=== PATIENT | female | born 1950 | race Caucasian/White ===

== ENCOUNTER → 2016-10-19 | Outpatient (CLI) | payer MEDICARE, OTHER ==
[2016-10-19 12:00] LABS: CH 32.1; CHCM 34.3; HCT 38.6 % (34.0-46.0); HDW 2.66; MCH 31.8 pg (25.0-35.0); MCHC 33.7 g/dL (31.0-37.0); MCV 94.3 fL (80.0-100.0); Mean Platelet Volume 7.2; RDW 12.7 % (11.5-15.5); WBC 6.5 k/uL (3.8-10.6)
[2016-10-19 12:16] LABS: Anion Gap 13 mmol/L; Blood Urea Nitrogen 8 mg/dL (7-17); Carbon Dioxide 21 mmol/L (22-30); Chloride 106 mmol/L (98-107); Non-African American GFR(MDRD) >60 (>60 ml/min/1.73 sqM); Potassium 4.4 mmol/L (3.5-5.1); Sodium 140 mmol/L (137-145)
== END | disposition home or self-care (01) ==
LOC: LABPAT 11:30
PROVIDERS: ATTEND Internal Medicine Interventional Cardiology
DX: Z01.812 Encounter for preprocedural laboratory examination (principal); R07.9 Chest pain, unspecified
CPT/HCPCS: 80051; 82565; 84520; 85027

== ENCOUNTER 2016-10-23 06:16 | Day surgery (SDC) | payer MEDICARE, OTHER ==
[2016-10-20 09:25] VITALS: BMI 27.1
[2016-10-23] MEDS ORDERED: ALPRAZolam 0.25 MG TAB PO PRN (06:24)
[2016-10-23] MEDS ORDERED: ATORVASTATIN 80 MG TAB PO STA (06:24)
[2016-10-23] MEDS ORDERED: ALPRAZolam 0.5 MG TAB PO PRN (06:24)
[2016-10-23] MEDS ORDERED: NITROGLYCERIN SL TABS 0.4 MG TAB SUBLINGUAL PRN (06:24)
[2016-10-23] MEDS ORDERED: SODIUM CHLORIDE 0.9% 1,000 ML in EMPTY BAG 1 BAG IV ONE (06:24)
[2016-10-23] MEDS ORDERED: ASPIRIN 325 MG TAB PO STA (06:24)
[2016-10-23 06:53] VITALS: RESP 16; TEMP 98.2
[2016-10-23] MEDS ORDERED: MIDAZOLAM 2 MG/2 ML VIAL IV ONE (07:45)
[2016-10-23] MEDS ORDERED: LIDOCAINE 2% INJ 20 MG/ML SQ ONE (07:46)
[2016-10-23] MEDS ORDERED: VERAPAMIL SYRINGE (5 MG/10 ML) INTRAARTER ONE (07:49)
[2016-10-23] MEDS ORDERED: HYDROmorphone 2 MG/ML 1 ML SYRINGE IV ONE (07:52)
[2016-10-23] MEDS ORDERED: IOHEXOL 350 MG/ML 100 ML BOTTLE INJ ONE (08:01)
[2016-10-23] MEDS ORDERED: RX INFO: IV CONTRAST WAS GIVEN 1 EACH MISC MISCELLANE PRN (08:09)
[2016-10-23] MEDS ORDERED: SODIUM CHLORIDE 0.9% 1,000 ML IV SCH (08:15)
[2016-10-23 13:04] VITALS: BP 138/64; PULSE 54
--- NOTE | 2016-10-23 16:30 | LTR ---
October 23, 2016 RE: Gracy Greco Dear Dr. Cortez: Ms. Gracy Greco underwent a heart catheterization which showed normal coronaries. Thank you for allowing me to participate in her care and please do not hesitate to call if you have any question or concerns. Sincerely, RITESH DAVIS MD
--- NOTE | 2016-10-23 16:43 | CC ---
DATE OF SERVICE: 10/23/2016 PERFORMING PHYSICIAN: Jim Barrera M.D., assistant statistician. PROCEDURE PERFORMED: Selective right and left coronary angiogram. INDICATION: This is a very pleasant 66-year-old female patient with hypertension, dyslipidemia and significant family history of coronary artery disease. She continues to have chest discomfort in spite of maximized medical treatment. She underwent a stress test which came back as normal, and she was reassured regarding that, but she continues to have chest discomfort. The heart catheterization is to rule out any severe underlying coronary artery disease. APPROACH: Right radial artery. COMPLICATIONS: None. LEVEL OF SEDATION: Moderate. PROCEDURE DESCRIPTION: After obtaining informed consent, the patient was brought to the cardiac research lab assistant. Right radial artery was cannulated using micropuncture technique. The micropuncture wire passed easily. Then I placed a 6 [place] sheath in the right radial artery. Subsequently I gave the patient 2 mg of Verapamil IA, 3000 units of heparin IV. Subsequently I did selective right and left coronary angiogram using JR4 and JL3.5 catheters. The procedure was completed without any complication. SELECTIVE CORONARY ANGIOGRAM: 1. The right coronary artery is a large-caliber vessel and it is a dominant vessel. It is angiographically normal. It bifurcates into PDA and PLV branches. Both are angiographically normal. 2. The left main is angiographically normal and bifurcates into the left circumflex and left anterior descending artery. 3. The left circumflex is a large-caliber vessel and it is a non-dominant vessel. The proximal left circumflex is angiographically normal and gives rise to the first and second obtuse marginal branches which seem to be tortuous but angiographically normally. The mid left circumflex is normal and gives rise to the third OM branch, which appeared to be angiographically normal besides being tortuous. The left circumflex continues after that as a small-caliber vessel in the AV groove. 4. Left anterior descending artery. The proximal left anterior descending artery appeared to be angiographically normal. The mid LAD appeared to be normal and gives rise to the first diagonal, which seems to be angiographically normal. The LAD distally is angiographically normal and also becomes tortuous. CONCLUSION: 1. Normal coronary angiogram. 2. Tortuous left coronary system. 3. Dominant right coronary system. POST-PROCEDURE MANAGEMENT: Maximize medical treatment and follow up with the patient.
== END 2016-10-23 13:39 | disposition home or self-care (01) ==
LOC: CATHCVL 06:16
PROVIDERS: ATTEND Internal Medicine Interventional Cardiology
DX: I20.0 Unstable angina (principal); I10 Essential (primary) hypertension; E78.5 Hyperlipidemia, unspecified; E78.00 Pure hypercholesterolemia, unspecified; Z82.49 Family history of ischemic heart disease and other diseases of the circulatory system; Z79.899 Other long term (current) drug therapy; Z88.1 Allergy status to other antibiotic agents; Z88.5 Allergy status to narcotic agent; Z87.891 Personal history of nicotine dependence
CPT/HCPCS: 93454; 99156; C1894; J2001; J2250; J1170; Q9967; J1644

== ENCOUNTER → 2017-04-06 | Outpatient (CLI) | payer MEDICARE, OTHER ==
[2017-04-06 09:54] LABS: Basophils # (A) 0.1 k/uL (0-0.2); Basophils % (A) 1 %; CH 32.1; CHCM 34.6; Eosinophils # (A) 0.1 k/uL (0-0.7); Eosinophils % (A) 3 %; HCT 38.6 % (34.0-46.0); HDW 2.45; HGB 13.4 gm/dL (11.4-16.0); Luc # (Auto) 0.18; Luc % (Auto) 4; Lymphocytes # (A) 1.7 k/uL (1.0-4.8); Lymphocytes % (A) 36 %; MCH 32.3 pg (25.0-35.0); MCHC 34.8 g/dL (31.0-37.0); Mean Platelet Volume 6.6; Monocytes # (A) 0.3 k/uL (0-1.0); Monocytes % (A) 7 %; Neutrophils # (A) 2.3 k/uL (1.3-7.7); Neutrophils % (A) 49 %; RBC 4.15 m/uL (3.80-5.40); RDW 13.3 % (11.5-15.5); WBC 4.7 k/uL (3.8-10.6); WBC (Perox) 4.88
[2017-04-06 10:24] LABS: ALT 71 U/L (9-52); AST 36 U/L (14-36); Alkaline Phosphatase 103 U/L (38-126); Anion Gap 11 mmol/L; Blood Urea Nitrogen 8 mg/dL (7-17); Calcium 9.8 mg/dL (8.4-10.2); Carbon Dioxide 25 mmol/L (22-30); Chloride 104 mmol/L (98-107); Cholesterol 194 mg/dL (<200); Glucose 133 mg/dL (74-99); HDL Cholesterol 58 mg/dL (40-60); Iron 102 ug/dL (37-170); Non-African American GFR(MDRD) >60 (>60 ml/min/1.73 sqM); Sodium 140 mmol/L (137-145); Total Bilirubin 0.6 mg/dL (0.2-1.3); Total Protein 6.6 g/dL (6.3-8.2); Triglycerides 181 mg/dL (<150); Uric Acid 5.4 mg/dL (3.7-7.4)
[2017-04-06 10:30] LABS: Potassium 4.7 mmol/L (3.5-5.1)
[2017-04-06 10:33] LABS: % Iron Saturation 31.9 % (20-50); Total Iron Binding Capacity 320 ug/dL (265-497)
[2017-04-06 11:13] LABS: Vitamin B12 380 pg/mL
[2017-04-06 13:58] LABS: Hemoglobin A1C 6.2 % (4.2-6.1)
--- NOTE | 2017-04-09 08:26 | MM ---
Reason for exam: screening (asymptomatic). Last mammogram was performed 1 year ago. History: Patient is postmenopausal. Cyst aspiration of the left breast. Cyst aspiration of the right breast. Took estrogen for 5 years 7 months. Took progesterone for 5 years 7 months. Physical Findings: A clinical breast exam by your physician is recommended on an annual basis and results should be correlated with mammographic findings. MG 3D Screening Mammo W/Cad Bilateral CC and MLO view(s) were taken. Prior study comparison: April 19, 2016, left breast MG 3d work up w/cad LT. April 05, 2016, bilateral MG screening mammo w CAD. The breast tissue is heterogeneously dense. This may lower the sensitivity of mammography. Partially obscured nodular density 7.2cm from nipple upper outer quadrant right breast. This finding is changed when compared with previous exams. ASSESSMENT: Incomplete: need additional imaging evaluation, BI-RAD 0 RECOMMENDATION: Special view mammogram of the right breast. If lesion persists on supplemental views, image directed ultrasound is recommended. [facility] will attempt to contact patient to return for supplemental views and ultrasound if indicated.
== END | disposition home or self-care (01) ==
LOC: RADMAMWWP 08:29
PROVIDERS: ATTEND Family Medicine
DX: Z12.31 Encounter for screening mammogram for malignant neoplasm of breast (principal); E56.9 Vitamin deficiency, unspecified; N95.1 Menopausal and female climacteric states; J44.9 Chronic obstructive pulmonary disease, unspecified; I50.32 Chronic diastolic (congestive) heart failure; I20.1 Angina pectoris with documented spasm; I10 Essential (primary) hypertension
CPT/HCPCS: 84439; 83880; 80061; 80053; 82607; 83036; 83540; 83550; 84443; 84550; 85025; 82306; 77063; G0202

== ENCOUNTER → 2017-04-19 | Outpatient (CLI) | payer MEDICARE, OTHER ==
--- NOTE | 2017-04-19 11:48 | MM ---
Reason for exam: additional evaluation requested from abnormal screening. Last mammogram was performed less than 1 month ago. History: Patient is postmenopausal. Cyst aspiration of the left breast. Cyst aspiration of the right breast. Took estrogen for 5 years 7 months. Took progesterone for 5 years 7 months. Physical Findings: Nurse Summary: 0.5cm nodule in the right breast at 2-3 o'clock (nurse kp). MG 3D Work Up W/Cad RT CC, MLO, ML, spot compression MLO, and spot compression CC view(s) were taken of the right breast. Prior study comparison: April 06, 2017, bilateral MG 3d screening mammo w/cad. April 19, 2016, left breast MG 3d work up w/cad LT. April 05, 2016, bilateral MG screening mammo w CAD. There are scattered fibroglandular densities. Finding: There is a 6 mm spiculated mass in the upper outer quadrant, middle position of the right breast. These results were verbally communicated with the patient and result sheet given to the patient on 04/19/17. ASSESSMENT: Incomplete: need additional imaging evaluation, BI-RAD 0 RECOMMENDATION: Ultrasound of the right breast.
--- NOTE | 2017-04-19 11:51 | USB ---
Reason for exam: additional evaluation requested from abnormal screening. History: Patient is postmenopausal. Cyst aspiration of the left breast. Cyst aspiration of the right breast. Took estrogen for 5 years 7 months. Took progesterone for 5 years 7 months. US Breast Workup Limited RT Right breast ultrasound demonstrates a 0.4 x 0.7 x 0.5cm irregular, solid, hypoechoic lesion at 11 o'clock, 4.2cm from nipple, correlates with mammographic findings. These results were verbally communicated with the patient and result sheet given to the patient on 04/19/17. ASSESSMENT: Suspicious, BI-RAD 4 RECOMMENDATION: Ultrasound core biopsy of the right breast. Called with mammographic findings and has scheduled an appointment for the patient for 05/24/17 at 10:[address] Martin. PRELIMINARY REPORT CALLED AND FAXED TO DR. MARTIN ON 04/19/17 AT 11:50 /TMP.
== END | disposition home or self-care (01) ==
LOC: RADMAMWWP 09:28
PROVIDERS: ATTEND Family Medicine
DX: R92.8 Other abnormal and inconclusive findings on diagnostic imaging of breast (principal); R92.2 Inconclusive mammogram
CPT/HCPCS: 76642; G0206; G0279

== ENCOUNTER → 2017-05-10 | Day surgery (SDC) | payer MEDICARE, OTHER ==
[2017-05-10 11:33] VITALS: RESP 18; BMI 26.9
[2017-05-10 13:26] VITALS: BP 117/69; PULSE 61; TEMP 97.8
--- NOTE | 2017-05-10 14:05 | USB ---
EXAMINATION TYPE: US biopsy breast VAD RT, Postbiopsy diagnostic mammo RT wo CAD DATE OF EXAM: 05/10/2017 CLINICAL HISTORY: 67-year-old female R92.8 ABN MAMMO. TECHNIQUE: Ultrasound guided core biopsy of the right breast. COMPARISON: 04/19/2017 and 04/06/2017 FINDINGS: The procedure of ultrasound guided core biopsy was explained to the patient. Benefits, alt ernatives, and risks were discussed. An informed consent was then obtained. The 7 x 3 mm vertically oriented irregular shadowing mass is identified at the 11:00 position and tar geted for biopsy. The patient was placed in supine positioning for imaging and for the procedure. The overlying skin w as prepped and draped in usual sterile fashion. Lidocaine was used as anesthetic into the skin and s ubcutaneous tissue up to area of concern in the right breast. Under ultrasound guidance, a 13-gauge vacuum-assisted mammotome Elite biopsy gun device was used to obtain 4 core samples. Following this, a coil clip was left in lesion. The patient tolerated the procedure well without any immediate complication. The patient was kept in the radiology department for short stay after the procedure and then discharged home in stable condi tion. Postbiopsy mammogram shows the clip in appropriate position at the site of mammographic abnormality. IMPRESSION: Successful, uncomplicated ultrasound guided core biopsy of the very suspicious area in the 11:00 righ t breast; full pathology results to follow. Excisional biopsy may be indicated in the event of discor dant results.
== END ==
LOC: RADUSWWP 11:04
PROVIDERS: ATTEND Family Medicine
DX: C50.911 Malignant neoplasm of unspecified site of right female breast (principal); D05.91 Unspecified type of carcinoma in situ of right breast; R92.8 Other abnormal and inconclusive findings on diagnostic imaging of breast
CPT/HCPCS: 19083; G0206; A4648; J2001; 88305; 88341; 88342

== ENCOUNTER → 2017-05-24 | Outpatient (CLI) | payer MEDICARE, OTHER ==
--- NOTE | 2017-05-24 12:35 | XR ---
EXAMINATION TYPE: XR chest 2V DATE OF EXAM: 05/24/2017 COMPARISON: 06/16/2016 TECHNIQUE: PA and lateral views submitted. HISTORY: Preop breast cancer FINDINGS: No pneumothorax or consolidation. Tiny bilateral pleural effusion suspected. Hyperinflation suggests COPD and there is degenerative change of the spine. Biapical pleural thickening. IMPRESSION: 1. Tiny bilateral pleural effusion or pleural thickening.
== END ==
LOC: RADXRMAIN 12:06
PROVIDERS: ATTEND Family Medicine
DX: C50.919 Malignant neoplasm of unspecified site of unspecified female breast (principal)
CPT/HCPCS: 71020

== ENCOUNTER 2017-05-31 09:13 | Day surgery (SDC) | payer MEDICARE, OTHER ==
[2017-05-22 16:21] VITALS: BMI 27.8
[~2017-05-31 09:13] MED LIST: DEXAMETHASONE SOD PHOSPHATE 10 MG/ML 1 ML VIAL IV ONE; HEPARIN SODIUM,PORCINE 5,000 UNIT/ML 1 ML VIAL SQ ONE; LACTATED RINGERS 1,000 ML IV SCH; LIDOCAINE 1% 20 ML VIAL (10MG/ML) FOR IV START INTRADERMA PRN; MIDAZOLAM 2 MG/2 ML VIAL IV PRN; ONDANSETRON 4 MG/2 ML VIAL IVP ONE; Pre Op ABX Message 1 EACH MISC MISCELLANE ONE; SCOPOLAMINE 1.5MG/72HR PATCH TRANSDERM ONE
[2017-05-31 09:32] VITALS: RESP 16
[2017-05-31 09:52] LABS: Glucose,Whole Blood 137 mg/dL (75-99)
[2017-05-31] MEDS ORDERED: ALPRAZolam 0.25 MG TAB PO ONE (10:02)
[2017-05-31] MEDS ORDERED: LIDOCAINE 1% INJ 10MG/ML (20 ML MDV) SQ ONE (11:16)
[2017-05-31] MEDS ORDERED: ePHEDrine SULFATE/0.9% NACL/PF 50 MG/5 ML SYRINGE IV ONE (12:23)
[2017-05-31] MEDS ORDERED: SUCCINYLCHOLINE CHLORIDE 100 MG/5 ML SYR IV ONE (12:23)
[2017-05-31] MEDS ORDERED: MIDAZOLAM 2 MG/2 ML VIAL ONE (12:23)
[2017-05-31] MEDS ORDERED: fentaNYL (PF) 50 MCG/ML 2 ML AMP ONE (12:23)
[2017-05-31] MEDS ORDERED: LIDOCAINE 1% INJ 10MG/ML (20 ML MDV) ONE (12:23)
[2017-05-31] MEDS ORDERED: PROPOFOL 10 MG/ML 20 ML VIAL IV ONE (12:23)
[2017-05-31] MEDS ORDERED: BUPIVACAINE (PF) 0.25% 30 ML VIAL SQ ONE (12:23)
[2017-05-31] MEDS ORDERED: SODIUM CHLORIDE 0.9% 100 ML with ceFAZolin 2,000 MG IV ONE ×2 (12:54)
--- NOTE | 2017-05-31 13:24 | NM ---
EXAMINATION TYPE: NM sentinel node injection DATE OF EXAM: 05/31/2017 COMPARISON: NONE HISTORY: Right breast cancer TECHNIQUE AND FINDINGS: The procedure of sentinel lymph node injection was explained to the patient. The benefits, alternatives, and risks were discussed. An informed consent was then obtained. Overlying skin is cleaned with sterile alcohol. Lidocaine buffered with bicarbonate was used as anes thetic into the skin and subcutaneous tissue surrounding the nipple. Following this, 585 uCi Tc 99m Filtered Sulfur Colloid was injected into 4 equivalent doses at 12, 3, 6, and 9:00 position surroundi ng the right nipple intradermally. The injection sites were massaged by nuclear reactor engineer for 10 minutes after injection. T he patient tolerated the procedure well without any immediate complication. The patient was kept in the radiology department for short stay after the procedure and then taken to surgery for surgical pr ocedure what is presumed intraoperative gamma probe will be used for sentinel lymph node detection. IMPRESSION: Right breast radiotracer injection for sentinel node localization as above.
[2017-05-31 14:28] VITALS: TEMP 96.2
[2017-05-31] MEDS ORDERED: NALOXONE 0.4 MG/ML 1 ML VIAL IV PRN (14:29)
[2017-05-31] MEDS ORDERED: HYDROcodone/APAP 5-325MG 1 EACH TAB PO PRN (14:29)
--- NOTE | 2017-05-31 14:33 | P.OP ---
Date of Procedure: 05/31/17 Preoperative Diagnosis: Postoperative Diagnosis: Procedure(s) Performed: PREOPERATIVE DIAGNOSIS: Right breast cancer POSTOPERATIVE DIAGNOSIS: Same PROCEDURE: Right Breast wire localization lumpectomy with sentinel lymph node biopsy and BioSorb placement SURGEON: Elisa EBL: Minimal ANESTHESIA: General COMPLICATIONS: None OPERATIVE PROCEDURE: Patient was placed on the operating room table in the supine position. 2 mL of methylene blue was injected into the subareolar space. The breast was then massaged for 5 minutes. The right axilla was addressed at that time. The hot spot in the right axilla was identified. A small curvilinear incision was made using the scalpel. Dissection down through the subcutaneous tissues took place using electrocautery. Using the neoprobe I identified a total of 3 sentinel lymph nodes. 2 of these were blue in color. These were all removed and sent to pathology for close examination. Frozen sections from these lymph nodes were negative for metastatic disease. No bleeding was seen. The subcutaneous tissues were closed using 3-0 Vicryl sutures. The skin was closed using 4-0 Monocryl sutures. The wire entrance site was then addressed. This was present at the 10:00 location. A curvilinear incision was made adjacent to the wire entrance site. I followed the wire down into the breast tissue. An adequate lumpectomy specimen then took place around the wire. Margins of 1.5-2 cm were attempted to be achieved. I then todd on the specimen with a black marker 6 different sides. The operative site was irrigated with saline. No bleeding was seen. A 2 x 3 cm BioSorb was placed in the biopsy cavity and sutured in place using 3-0 Vicryl sutures. The subcutaneous tissues were closed using 3-0 Vicryl sutures. The skin was closed using a running 4-0 Monocryl stitch. Steri-Strips and sterile dressings were applied. The lumpectomy specimen was then appropriately marked on all 6 sides with the appropriate color. DISPOSITION: Stable to recovery room Implants: Indications for Procedure: Operative Findings: Description of Procedure:
[2017-05-31] MEDS: HYDROmorphone 1 MG/ML 1 ML SYRINGE IVP PRN ×4 (14:40→15:41)
--- NOTE | 2017-05-31 14:47 | MM ---
EXAMINATION TYPE: MG pre op needle loc RT, MG surgical specimen RT DATE OF EXAM: 05/31/2017 12:27 PM COMPARISON: NONE HISTORY: Right breast carcinoma Informed consent was obtained and all the patient's questions were answered. The clip in question was localized mammographically. The standard sterile technique was utilized, as well as appropriate local anesthesia with 1% Lidocaine and bicarbonate. Localization needle followed by placement of a guidewire was performed under mammographic guidance. Verification images demonstrate appropriate deployment of the guidewire. The patient tolerated the procedure well and left the department in stable condition. Specimen radiograph demonstrates the clip in question to reside within the specimen. IMPRESSION: Successful needle localization and open biopsy right breast with pathology results pending . Pathology Results: Malignant A. SENTINEL LYMPH NODE #1, BIOPSY: TWO LYMPH NODES NEGATIVE FOR METASTASIS. CK7 AND SHELLIE IMMUNOPEROXIDASE STAINS ARE CONFIRMATORY (CONTROLS APPROPRIATE). B. SENTINEL LYMPH NODE #2, BIOPSY: LYMPH NODE NEGATIVE FOR METASTASIS. CK7 AND SHELLIE IMMUNOPEROXIDASE STAINS ARE CONFIRMATORY (CONTROLS APPROPRIATE). C. SENTINEL LYMPH NODE #3, BIOPSY: LYMPH NODE NEGATIVE FOR METASTASIS. CK7 AND SHELLIE IMMUNOPEROXIDASE STAINS ARE CONFIRMATORY (CONTROLS APPROPRIATE). D. 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 LOBULAR NEOPLASIA (AHL/LCIS) AND FOCAL FLAT EPITHELIAL ATYPIA (FEA/ADH). BACKGROUND PROLIFERATIVE FIBROCYSTIC CHANGES. SEE SURGICAL PATHOLOGY CANCER CASE SUMMARY AND COMMENT. E. RIGHT AXILLARY CONTENTS: BENIGN FIBROADIPOSE TISSUE. NO LYMPH NODE IDENTIFIED. Recommendation Surgical consult of the right breast. JANEL
[2017-05-31] MEDS ORDERED: LACTATED RINGERS 1,000 ML IV ONE ×2 (14:57)
[2017-05-31] MEDS ORDERED: HYDROcodone/APAP 5-325MG 1 EACH TAB PO ONE (16:20)
[2017-05-31 16:46] VITALS: BP 141/65; PULSE 80
== END 2017-05-31 18:03 | disposition home or self-care (01) ==
LOC: OR 09:13
PROVIDERS: ATTEND Surgery
DX: C50.411 Malignant neoplasm of upper-outer quadrant of right female breast (principal); I10 Essential (primary) hypertension; E78.5 Hyperlipidemia, unspecified; E78.00 Pure hypercholesterolemia, unspecified; K21.9 Gastro-esophageal reflux disease without esophagitis; E11.9 Type 2 diabetes mellitus without complications; I50.9 Heart failure, unspecified; Z80.8 Family history of malignant neoplasm of other organs or systems; Z80.0 Family history of malignant neoplasm of digestive organs; Z79.899 Other long term (current) drug therapy; Z88.1 Allergy status to other antibiotic agents; Z88.5 Allergy status to narcotic agent
CPT/HCPCS: 19301; 38500; 88305; 88342; 88331; 88307; 88341; 88361; 76098; 19281; 38792; A9541; J2250; J1644; J1100; J2405; J2001; J3010; J1170; J0690; J0330; J2704

== ENCOUNTER → 2017-12-06 | Outpatient (CLI) | payer MEDICARE, OTHER ==
--- NOTE | 2017-12-06 13:53 | BD ---
EXAMINATION TYPE: MG DEXA axial skeleton. DATE OF EXAM: 12/06/2017 CLINICAL HISTORY: Height: 60.5 Weight: 148 FRAX RISK QUESTIONS: Alcohol (3 or more units per day): no Family History (Parent hip fracture): no Glucocorticoids (More than 3mos): no (Ex: prednisone, prednisolone, methylprednisolone, dexamethasone, and hydrocortisone). History of Fracture in Adulthood: yes; ankle- toes Secondary Osteoporosis: 1. Type 1 Diabetes: no 2. Hyperthyroidism: no 3. Menopause before 45: no, 45 4. Malnutrition: no 5. Chronic liver disease: no Rheumatoid Arthritis: no Current Tobacco Use: no RISK FACTORS HISTORY OF: Surgery Wrist (right/left): yes, bilateral carpal tunnel surgery When: about 20 years ago Family History of Osteoporosis: no Active: yes Diet low in dairy products/other sources of calcium: no Postmenopausal woman: yes Take estrogen and/or progesterone medications: now takes antineoplastic: Letrozole(Femara) How long: about 5 years took estrogen/progesterone Lost more than 2 inches in height since high school: no Frequent falls: no Poor Health: somewhat Hyperparathyroidism: no Adrenal Insufficiency: no MEDICATIONS: Prednisone or other steroids: no Thyroid Medications: no Osteoporosis Medications: no Additional Medications: vitamins B 12 & D3, Escitalopram, Isosorbide Mononitrate , Metoprolol Tartrat e, Benicar tabs, Simvastatin, Montelukast SOD, Zyrtec Allergy Additional History: Breast CA---radiation, congestive heart failure, chronic lower back pain EXAM MEASUREMENTS: Bone mineral densitometry was performed using the [employer]. Bone mineral density as measured about the Lumbar spine is: ----- L1-L4(G/cm2): 1.020 T Score Values are as follows: ----- L2: -2.0 ----- L3: -0.9 ----- L4: -1.4 ----- L1-L4: -1.3 Bone mineral density has: Decreased -5.7% since study of: 04/05/2016 Bone mineral density about the R hip (g/cm2): 0.691 Bone mineral density about the L hip (g/cm2): 0.665 T Score values are as follows: -----R Neck: -2.5 -----L Neck: -2.7 -----R Total: -1.6 -----L Total: -1.4 Bone mineral density has: Increased 1.4% since study of: 04/05/2016 IMPRESSION: Osteoporosis (T Score less than -2.5). There is increased fracture risk and therapy is usually indicated based on age. Re-Screen 1-2 years. NOTE: T-SCORE=SD OF THE YOUNG ADULT MEAN.
== END | disposition home or self-care (01) ==
LOC: RADBDWWP 10:37
PROVIDERS: ATTEND Internal Medicine Hematology & Oncology
DX: C50.411 Malignant neoplasm of upper-outer quadrant of right female breast (principal); M81.0 Age-related osteoporosis without current pathological fracture; Z79.890 Hormone replacement therapy
CPT/HCPCS: 77080

== ENCOUNTER → 2017-12-24 | Outpatient (CLI) | payer MEDICARE, OTHER ==
[2017-12-24 09:38] LABS: Basophils % (A) 1 %; Eosinophils # (A) 0.1 k/uL (0-0.7); Eosinophils % (A) 2 %; HCT 41.2 % (34.0-46.0); HGB 13.6 gm/dL (11.4-16.0); Lymphocytes # (A) 1.4 k/uL (1.0-4.8); Lymphocytes % (A) 28 %; MCHC 33.2 g/dL (31.0-37.0); MCV 93.5 fL (80.0-100.0); Mean Platelet Volume 6.8; Monocytes # (A) 0.3 k/uL (0-1.0); Monocytes % (A) 7 %; Neutrophils # (A) 2.9 k/uL (1.3-7.7); Neutrophils % (A) 59 %; Platelet Count 298 k/uL (150-450); RDW 13.1 % (11.5-15.5); WBC 4.9 k/uL (3.8-10.6)
[2017-12-24 09:53] LABS: ALT 66 U/L (9-52); AST 43 U/L (14-36); Albumin 4.6 g/dL (3.5-5.0); Alkaline Phosphatase 103 U/L (38-126); Anion Gap 13 mmol/L; Blood Urea Nitrogen 12 mg/dL (7-17); Calcium 9.5 mg/dL (8.4-10.2); Carbon Dioxide 25 mmol/L (22-30); Chloride 101 mmol/L (98-107); Cholesterol 194 mg/dL (<200); Creatine Kinase 161 U/L (30-135); Glucose 119 mg/dL (74-99); HDL Cholesterol 73 mg/dL (40-60); LDL Cholesterol,Calculated 93 mg/dL (0-99); Potassium 5.4 mmol/L (3.5-5.1); Sodium 139 mmol/L (137-145); Total Bilirubin 0.4 mg/dL (0.2-1.3); Total Protein 7.3 g/dL (6.3-8.2); Triglycerides 141 mg/dL (<150)
[2017-12-24 10:08] LABS: T4, Free (Free Thyroxine) 0.79 ng/dL (0.78-2.19)
== END | disposition home or self-care (01) ==
LOC: LABWHC1 09:10
PROVIDERS: ATTEND Family Medicine
DX: E11.9 Type 2 diabetes mellitus without complications (principal); R07.9 Chest pain, unspecified; I10 Essential (primary) hypertension; E78.5 Hyperlipidemia, unspecified
CPT/HCPCS: 36415; 80053; 80061; 82043; 82550; 82570; 82607; 83036; 84439; 84443; 85025

== ENCOUNTER → 2018-01-23 | Outpatient (CLI) | payer MEDICARE, OTHER ==
[2018-01-23 10:50] LABS: Blood Urea Nitrogen 10 mg/dL (7-17)
--- NOTE | 2018-01-23 12:25 | CT ---
EXAMINATION TYPE: CT abdomen pelvis w con DATE OF EXAM: 01/23/2018 COMPARISON: NONE HISTORY: Abdominal distention CT DLP: 1270 mGycm CONTRAST: CT scan of the abdomen and pelvis is performed with Oral Contrast and with IV Contrast, patient injec damian with 100 mL of Isovue 300. FINDINGS: LUNG BASES-: No visible nodule. No infiltrate. LIVER/GB: No calcified gallstones. Note is made of fatty hepatic infiltration. No space occupying hepatic lesion. Biliary tree is of normal caliber. PANCREAS: No inflammation. No distinct mass. SPLEEN: No splenic enlargement. No lesion seen. ADRENALS: No nodule. No thickening. KIDNEYS/BLADDER: No hydronephrosis. No nephrolithiasis. No distinct renal mass. Urinary bladder g rossly unremarkable. BOWEL: Normal appendix. Normal bowel caliber. No inflammation. Sigmoid diverticulosis without diver ticulitis. GENITAL ORGANS: No gross abnormality. LYMPH NODES: No greater than 1cm abdominal or pelvic lymph nodes are appreciated. AORTA: No significant abnormality. OSSEOUS STRUCTURES: No significant abnormality is seen. OTHER: No significant additional abnormality is seen. IMPRESSION: 1. Sigmoid diverticulosis without diverticulitis. 2. Fatty liver.
== END | disposition home or self-care (01) ==
LOC: RADCTMAIN 10:06
PROVIDERS: ATTEND Family Medicine
DX: K57.30 Diverticulosis of large intestine without perforation or abscess without bleeding (principal); K76.0 Fatty (change of) liver, not elsewhere classified
CPT/HCPCS: 82565; 84520; 74177; Q9967

== ENCOUNTER 2018-02-05 09:37 | Day surgery (SDC) | payer MEDICARE, OTHER ==
[2018-02-01 10:28] VITALS: BMI 28.6
[~2018-02-05 09:37] MED LIST changes: -DEXAMETHASONE SOD PHOSPHATE 10 MG/ML 1 ML VIAL IV ONE; -HEPARIN SODIUM,PORCINE 5,000 UNIT/ML 1 ML VIAL SQ ONE; -MIDAZOLAM 2 MG/2 ML VIAL IV PRN; -ONDANSETRON 4 MG/2 ML VIAL IVP ONE; -Pre Op ABX Message 1 EACH MISC MISCELLANE ONE; -SCOPOLAMINE 1.5MG/72HR PATCH TRANSDERM ONE
[2018-02-05 10:55] VITALS: TEMP 98.8
[2018-02-05] MEDS ORDERED: PROPOFOL 10 MG/ML 20 ML VIAL IV ONE (11:31)
[2018-02-05] MEDS ORDERED: LIDOCAINE HCL/PF 20 MG/ML 10 ML AMP ONE (11:31)
[2018-02-05] MEDS ORDERED: LIDOCAINE 1% INJ 10MG/ML (20 ML MDV) ONE (11:31)
[2018-02-05 11:58] VITALS: PULSE 61; RESP 16
--- NOTE | 2018-02-05 12:03 | P.PCN ---
Date of Procedure: 02/05/18 Procedure(s) Performed: Procedure: Colonoscopy and biopsy. Preoperative diagnosis: Change in bowel habits. Postoperative diagnosis: 1. Diverticulosis with no evidence of acute diverticulitis or strictures. 2. Exam of the colon, otherwise, within normal limits. 3. Biopsies obtained from the right colon. Preparation: HalfLytely prep. Sedation: Was provided by anesthesia. Brief clinical history: The patient is an 67-year-old female with history of breast cancer, is referred because of change in bowel habits. Her last colonoscopy was in 2012. This evaluation is to assess for inflammatory, infectious conditions or neoplasia. Procedure: With the patient on her left lateral decubitus position and after informed consent and adequate sedation, the perianal area was inspected and it did not show any fissures or fistulas. There were no masses felt on digital rectal examination. The Olympus CFQ 160L video colonoscope was then inserted in the rectum in the usual fashion and advanced to the cecum. There were several diverticular orifices seen scattered in the colon, both on the right and left side but I saw no evidence of acute diverticulitis or strictures. The mucosa of the colon appeared healthy with no edema, erythema, friability, ulceration, exudation or spontaneous bleeding. No polyps or tumors were seen or any other pathology. I obtained biopsies from the right colon then I retroflexed the endoscope in the rectum before the endoscope was withdrawn. The patient tolerated the procedure well. Plan: The patient was reassured. Discussed dietary measures and symptomatic treatment. We will await pathology results and make further plans based on her course and biopsy results. She will follow-up with you as planned and I will be happy to see in the office if her symptoms persist.
[2018-02-05 12:11] VITALS: BP 90/47
== END 2018-02-05 12:36 | disposition home or self-care (01) ==
LOC: ORWHC2ENDO 09:37
DX: K57.30 Diverticulosis of large intestine without perforation or abscess without bleeding (principal); K21.9 Gastro-esophageal reflux disease without esophagitis; I25.10 Atherosclerotic heart disease of native coronary artery without angina pectoris; I11.0 Hypertensive heart disease with heart failure; I50.9 Heart failure, unspecified; E11.9 Type 2 diabetes mellitus without complications; Z85.3 Personal history of malignant neoplasm of breast; M19.90 Unspecified osteoarthritis, unspecified site; K58.9 Irritable bowel syndrome, unspecified; E78.5 Hyperlipidemia, unspecified; Z79.890 Hormone replacement therapy; Z79.899 Other long term (current) drug therapy; Z88.5 Allergy status to narcotic agent; Z88.0 Allergy status to penicillin; Z91.040 Latex allergy status
CPT/HCPCS: 88305; 45380; J2001; J2704

== ENCOUNTER → 2018-04-09 | Outpatient (CLI) | payer MEDICARE, OTHER ==
--- NOTE | 2018-04-09 12:03 | MM ---
Reason for exam: additional evaluation requested from prior study. Last mammogram was performed 11 months ago. History: Patient is postmenopausal and has history of breast cancer at age 67. Malignant MG pre op needle loc RT of the right breast, May 31, 2017. Malignant US biopsy breast VAD RT of the right breast, May 10, 2017. Cyst aspiration of the left breast. Cyst aspiration of the right breast. Radiation therapy. Took estrogen for 5 years 7 months. Took progesterone for 5 years 7 months. Taking antineoplastic beginning at age 67. Physical Findings: Nurse did not find any significant physical abnormalities on exam. MG 3D Diag Mammo W/Cad ROBYN Bilateral CC and MLO view(s) were taken. Prior study comparison: May 10, 2017, right breast MG diagnostic mammo RT wo CAD. April 19, 2017, right breast MG 3d work up w/cad RT. There are scattered fibroglandular densities. Finding #1: Architectural distortion in the right breast consistent with round density. Finding #2: There are typically benign round calcifications in both breasts. Previous mammotome biopsy in the left breast. There is no discrete abnormality. These results were verbally communicated with the patient and result sheet given to the patient on 04/09/18. ASSESSMENT: Benign, BI-RAD 2 RECOMMENDATION: Follow-up diagnostic mammogram of both breasts in 1 year.
== END ==
LOC: RADMAMWWP 10:36
PROVIDERS: ATTEND Internal Medicine Hematology & Oncology
DX: Z08 Encounter for follow-up examination after completed treatment for malignant neoplasm (principal); Z85.3 Personal history of malignant neoplasm of breast
CPT/HCPCS: 77066; G0279; 77062

== ENCOUNTER → 2018-06-03 | Outpatient (CLI) | payer MEDICARE, OTHER ==
[2018-06-03 09:20] LABS: Basophils % (A) 1 %; Eosinophils # (A) 0.1 k/uL (0-0.7); Eosinophils % (A) 2 %; HCT 39.6 % (34.0-46.0); HGB 12.9 gm/dL (11.4-16.0); Lymphocytes # (A) 1.5 k/uL (1.0-4.8); Lymphocytes % (A) 34 %; MCH 31.3 pg (25.0-35.0); MCHC 32.7 g/dL (31.0-37.0); MCV 95.6 fL (80.0-100.0); Mean Platelet Volume 6.4; Monocytes # (A) 0.3 k/uL (0-1.0); Monocytes % (A) 7 %; Neutrophils # (A) 2.3 k/uL (1.3-7.7); Neutrophils % (A) 52 %; Platelet Count 269 k/uL (150-450); RBC 4.14 m/uL (3.80-5.40); RDW 12.9 % (11.5-15.5); WBC 4.4 k/uL (3.8-10.6)
[2018-06-03 09:30] LABS: ALT 47 U/L (9-52); AST 31 U/L (14-36); Albumin 4.3 g/dL (3.5-5.0); Alkaline Phosphatase 52 U/L (38-126); Anion Gap 8 mmol/L; Blood Urea Nitrogen 14 mg/dL (7-17); Calcium 9.2 mg/dL (8.4-10.2); Carbon Dioxide 27 mmol/L (22-30); Chloride 102 mmol/L (98-107); Cholesterol 206 mg/dL (<200); Glucose 118 mg/dL (74-99); HDL Cholesterol 72 mg/dL (40-60); LDL Cholesterol,Calculated 108 mg/dL (0-99); Potassium 4.8 mmol/L (3.5-5.1); Sodium 137 mmol/L (137-145); Total Bilirubin 0.5 mg/dL (0.2-1.3); Total Protein 6.8 g/dL (6.3-8.2); Triglycerides 129 mg/dL (<150)
[2018-06-03 09:46] LABS: T4, Free (Free Thyroxine) 0.82 ng/dL (0.78-2.19)
[2018-06-03 17:08] LABS: Hemoglobin A1C 6.3 % (4.0-6.0)
== END | disposition home or self-care (01) ==
LOC: LABWHC1 08:19
PROVIDERS: ATTEND Family Medicine
DX: E78.5 Hyperlipidemia, unspecified (principal); E11.9 Type 2 diabetes mellitus without complications; I10 Essential (primary) hypertension
CPT/HCPCS: 36415; 80053; 80061; 83036; 84439; 84443; 85025

== ENCOUNTER → 2018-07-08 | Outpatient (CLI) | payer MEDICARE, OTHER ==
[2018-07-08 07:23] LABS: Blood Urea Nitrogen 14 mg/dL (7-17)
--- NOTE | 2018-07-08 08:58 | CT ---
EXAMINATION TYPE: CT hip RT w con DATE OF EXAM: 07/08/2018 COMPARISON: CT abdomen and pelvis January 23, 2018 HISTORY: Rt hip pain, history of breast CA CT DLP: 370 mGycm Automated exposure control for dose reduction was used. CONTRAST: Performed with IV Contrast, patient injected with 100 mL of Isovue 300. FINDINGS: Visualized portion of right hip including acetabulum and proximal femur show no acute fracture or dis location. No suspicious lytic, expansile, or sclerotic osseous lesion is identified. No significant h ip joint effusion is seen. Muscle bulk right thigh is preserved. No large fluid collection over great er or lesser trochanter is present. No bowel or groin containing inguinal hernia is seen. No suspicio us groin adenopathy is noted. Pubic symphysis is intact. Visualized portion of pelvis shows no suspicious bowel dilatation. Portion s of normal-appearing anteverted uterus and bladder are seen. There is stable small amount of free fl uid right pelvis axial image [address], etiology uncertain. IMPRESSION: NO SUSPICIOUS OSSEOUS FINDINGS IDENTIFIED TO ACCOUNT FOR PATIENT'S SYMPTOMS. STABLE TINY AMOUNT OF FR EE FLUID RIGHT PELVIS OF UNCERTAIN ETIOLOGY OTHERWISE UNREMARKABLE STUDY.
== END | disposition home or self-care (01) ==
LOC: RADCTMAIN 06:45
PROVIDERS: ATTEND Family Medicine
DX: M25.551 Pain in right hip (principal)
CPT/HCPCS: 82565; 84520; 36415; 73701; Q9967

== ENCOUNTER → 2018-08-20 | Outpatient (CLI) | payer MEDICARE, OTHER ==
--- NOTE | 2018-08-20 11:53 | USB ---
Reason for exam: clinical finding. History: Patient is postmenopausal and has history of breast cancer at age 67. Malignant MG pre op needle loc RT of the right breast, May 31, 2017. Malignant US biopsy breast VAD RT of the right breast, May 10, 2017. Cyst aspiration of the left breast. Cyst aspiration of the right breast. Radiation therapy. Took estrogen for 5 years 7 months. Took progesterone for 5 years 7 months. Taking antineoplastic beginning at age 67. Indicated problem(s): lump or thickening in the right breast. Physical Findings: Nurse Summary: patient states Dr. Martin felt right breast lump, questionable biozorb versus lump, patient states state in size since lumpectomy, right thickening tenderness with palpation (nurse mj). US Breast RT Right complete breast ultrasound includes all four quadrants, the retroareolar region and axilla. Finding demonstrates biozorb marker 4.5cm from nipple. No suspicious changes. These results were verbally communicated with the patient and result sheet given to the patient on 08/20/18. ASSESSMENT: Benign, BI-RAD 2 RECOMMENDATION: Follow-up diagnostic mammogram of both breasts in 8 months.
== END ==
LOC: RADUSWWP 07:57
PROVIDERS: ATTEND Family Medicine
DX: N63.10 Unspecified lump in the right breast, unspecified quadrant (principal); Z85.3 Personal history of malignant neoplasm of breast

== ENCOUNTER → 2018-10-17 | Outpatient (CLI) | payer MEDICARE, OTHER ==
[2018-10-17 09:41] LABS: Basophils % (A) 1 %; Eosinophils # (A) 0.1 k/uL (0-0.7); Eosinophils % (A) 4 %; HCT 39.2 % (34.0-46.0); HGB 13.2 gm/dL (11.4-16.0); Lymphocytes # (A) 1.3 k/uL (1.0-4.8); Lymphocytes % (A) 34 %; MCH 32.1 pg (25.0-35.0); MCHC 33.7 g/dL (31.0-37.0); MCV 95.3 fL (80.0-100.0); Mean Platelet Volume 6.6; Monocytes # (A) 0.2 k/uL (0-1.0); Monocytes % (A) 6 %; Neutrophils # (A) 1.9 k/uL (1.3-7.7); Neutrophils % (A) 51 %; Platelet Count 272 k/uL (150-450); RBC 4.11 m/uL (3.80-5.40); RDW 13.8 % (11.5-15.5); WBC 3.8 k/uL (3.8-10.6)
[2018-10-17 16:26] LABS: Albumin 4.3 g/dL (3.80-4.90); Albumin/Globulin Ratio 2.39 (1.20-2.10); Anion Gap 6.5 mmol/L (4.00-12.00); Calcium 8.8 mg/dL (8.7-10.3); Carbon Dioxide 24.5 mmol/L (21.6-31.8); Globulin 1.8 g/dL (1.6-3.3); LDL Cholesterol,Calculated 202.2 mg/dL (0.0-131.0); Potassium 4.7 mmol/L (3.5-5.5); Total Bilirubin 0.5 mg/dL (0.3-1.2); Total Protein 6.1 g/dL (6.2-8.2); VLDL Calculation 40.8 mg/dL (5.00-40.00)
[2018-10-17 16:34] LABS: T4, Free (Free Thyroxine) 0.9 ng/dL (0.80-1.80)
[2018-10-17 18:39] LABS: Hemoglobin A1C 6.1 % (4.0-6.0)
== END | disposition home or self-care (01) ==
LOC: LABWHC1 08:48
PROVIDERS: ATTEND Family Medicine
DX: E78.5 Hyperlipidemia, unspecified (principal); I10 Essential (primary) hypertension; E11.9 Type 2 diabetes mellitus without complications
CPT/HCPCS: 36415; 80053; 80061; 83036; 84439; 84443; 85025

== ENCOUNTER → 2018-11-14 | Outpatient (CLI) | payer MEDICARE, OTHER ==
--- NOTE | 2018-11-14 12:07 | XR ---
EXAM TYPE: LUMBAR SPINE X RAY SERIES COMPARISON: NONE HISTORY: Pain TECHNIQUE: 4 views are submitted. FINDINGS: Alignment is anatomic. The pedicles are intact. The transverse processes are intact. There is mult ilevel degenerative disc disease and facet arthropathy. Slight anterolisthesis of L3 on L4 and L4 on L5. IMPRESSION: 1. Multilevel degenerative disc disease and facet arthropathy. Correlate with MRI as clinically warra nted.
--- NOTE | 2018-11-14 12:09 | XR ---
EXAMINATION TYPE: XR hand complete RT DATE OF EXAM: 11/14/2018 COMPARISON: NONE HISTORY: Pain TECHNIQUE: Three views are submitted. FINDINGS: The osseous structures are intact. There is narrowing the first carpal metacarpal joint and gastric t rapezial scaphoid joint. Narrowing the first MCP and DIP joint. Marked narrowing of the third DIP smith nt. Mild diffuse osteopenia. IMPRESSION: 1. Osteoarthritis.
== END | disposition home or self-care (01) ==
LOC: RADXRMAIN 11:38
PROVIDERS: ATTEND Family Medicine
DX: M51.36 Other intervertebral disc degeneration, lumbar region (principal); M46.96 Unspecified inflammatory spondylopathy, lumbar region; M19.041 Primary osteoarthritis, right hand
CPT/HCPCS: 72100

== ENCOUNTER → 2019-02-10 | Outpatient (CLI) | payer MEDICARE, OTHER ==
[2019-02-10 08:47] LABS: Basophils # (A) 0.1 k/uL (0-0.2); Basophils % (A) 1 %; Eosinophils # (A) 0.2 k/uL (0-0.7); Eosinophils % (A) 3 %; HGB 13.3 gm/dL (11.4-16.0); Lymphocytes # (A) 1.5 k/uL (1.0-4.8); Lymphocytes % (A) 30 %; MCHC 32.4 g/dL (31.0-37.0); MCV 95.7 fL (80.0-100.0); Mean Platelet Volume 6.5; Monocytes # (A) 0.3 k/uL (0-1.0); Monocytes % (A) 6 %; Neutrophils # (A) 2.9 k/uL (1.3-7.7); Neutrophils % (A) 58 %; Platelet Count 273 k/uL (150-450); RBC 4.28 m/uL (3.80-5.40); RDW 13.2 % (11.5-15.5)
[2019-02-10 17:12] LABS: Albumin 4.5 g/dL (3.80-4.90); Albumin/Globulin Ratio 2.81 (1.60-3.17); Calcium 9.2 mg/dL (8.7-10.3); Globulin 1.6 g/dL (1.6-3.3); LDL Cholesterol,Calculated 72.8 mg/dL (0.0-131.0); Potassium 4.4 mmol/L (3.5-5.5); Total Bilirubin 0.4 mg/dL (0.3-1.2); Total Protein 6.1 g/dL (6.2-8.2); VLDL Calculation 22.2 mg/dL (5.00-40.00)
[2019-02-10 19:47] LABS: Hemoglobin A1C 6.4 % (4.0-6.0)
== END | disposition home or self-care (01) ==
LOC: LABWHC1 08:24
PROVIDERS: ATTEND Family Medicine
DX: E78.5 Hyperlipidemia, unspecified (principal); E11.9 Type 2 diabetes mellitus without complications; I10 Essential (primary) hypertension
CPT/HCPCS: 36415; 80053; 80061; 83036; 84439; 84443; 85025

== ENCOUNTER → 2019-04-11 | Outpatient (CLI) | payer MEDICARE, OTHER ==
--- NOTE | 2019-04-11 13:40 | MM ---
Reason for exam: additional evaluation requested from prior study. Last mammogram was performed 1 year ago. History: Patient is postmenopausal and has history of breast cancer at age 67. Malignant MG pre op needle loc RT of the right breast, May 31, 2017. Malignant US biopsy breast VAD RT of the right breast, May 10, 2017. Cyst aspiration of the left breast. Cyst aspiration of the right breast. Radiation therapy. Took estrogen for 5 years 7 months. Took progesterone for 5 years 7 months. Taking antineoplastic beginning at age 67. Physical Findings: Nurse did not find any significant physical abnormalities on exam. MG 3D Diag Mammo W/Cad ROBYN Bilateral CC and MLO view(s) were taken. Prior study comparison: April 09, 2018, bilateral MG 3d diag mammo w/cad ROBYN. May 10, 2017, right breast MG diagnostic mammo RT wo CAD. There are scattered fibroglandular densities. No significant new findings when compared with previous films. These results were verbally communicated with the patient and result sheet given to the patient on 04/11/19. ASSESSMENT: Benign, BI-RAD 2 RECOMMENDATION: Follow-up diagnostic mammogram of both breasts in 1 year.
== END | disposition home or self-care (01) ==
LOC: RADMAMWWP 12:36
PROVIDERS: ATTEND Internal Medicine Hematology & Oncology
DX: Z08 Encounter for follow-up examination after completed treatment for malignant neoplasm (principal); Z85.3 Personal history of malignant neoplasm of breast
CPT/HCPCS: 77066; G0279; 77062

== ENCOUNTER → 2019-04-12 | Outpatient (CLI) | payer MEDICARE, OTHER ==
[2019-04-12 09:32] LABS: Basophils % (A) 1 %; Eosinophils # (A) 0.1 k/uL (0-0.7); Eosinophils % (A) 3 %; HCT 36.4 % (34.0-46.0); Lymphocytes # (A) 1.4 k/uL (1.0-4.8); Lymphocytes % (A) 31 %; MCH 30.9 pg (25.0-35.0); MCHC 32.8 g/dL (31.0-37.0); MCV 94.2 fL (80.0-100.0); Mean Platelet Volume 6.9; Monocytes # (A) 0.3 k/uL (0-1.0); Monocytes % (A) 6 %; Neutrophils # (A) 2.5 k/uL (1.3-7.7); Neutrophils % (A) 55 %; Platelet Count 273 k/uL (150-450); RBC 3.86 m/uL (3.80-5.40); RDW 13.9 % (11.5-15.5); WBC 4.5 k/uL (3.8-10.6)
[2019-04-12 10:57] LABS: Erythrocyte Sedimentation Rate 8 mm/hr (0-20)
[2019-04-12 23:09] LABS: BUN/Creat Ratio 18.33 Ratio (12.00-20.00); C Reactive Protein <0.4 mg/dL (0.0-0.8); Calcium 9.2 mg/dL (8.7-10.3); Chloride 106 mmol/L (96-109); Glucose 131 mg/dL (70-110); Potassium 4.5 mmol/L (3.5-5.5); Sodium 139 mmol/L (135-145)
[2019-04-13 12:24] LABS: Lipase 38 U/L (14-63)
[2019-04-14 12:28] LABS: Gliadin AB IgA, Unit <0.2 U/mL
== END | disposition home or self-care (01) ==
LOC: LABWHC1 08:55
PROVIDERS: ATTEND Family Medicine
DX: R19.7 Diarrhea, unspecified (principal)
CPT/HCPCS: 36415; 80048; 83516; 83690; 84439; 84443; 85025; 85652; 86140

== ENCOUNTER → 2019-05-06 | Outpatient (CLI) | payer MEDICARE, OTHER ==
--- NOTE | 2019-05-06 09:25 | CT ---
EXAMINATION TYPE: CT abdomen pelvis w con DATE OF EXAM: 05/06/2019 COMPARISON: 07/08/2018 HISTORY: Abdominal distention CT DLP: 806.80 mGycm Automated exposure control for dose reduction was used. TECHNIQUE: Helical acquisition of images was performed from the lung bases through the pelvis. CONTRAST: Performed with Oral Contrast and with IV Contrast, patient injected with 100 ml mL of Isovue 300. FINDINGS: LUNG BASES: Redemonstration of minimal thickening along the minor fissure on coronal image of image [address] of the chest dated 03/03/2015. Otherwise, the visualized lung bases are clear. LIVER/GB: Redemonstration of diffuse fatty infiltration of the liver. Gallbladder appears normal. No intrahepatic lesion identified. Intrahepatic and extrahepatic biliary ducts appear normal. PANCREAS: No significant abnormality is seen. SPLEEN: No significant abnormality is seen. ADRENALS: No significant abnormality is seen. KIDNEYS: No significant abnormality is seen. FREE AIR: No free air is visualized. RETROPERITONEAL ADENOPATHY: None visualized REPRODUCTIVE ORGANS: Atrophy of the uterus. URINARY BLADDER: No significant abnormality is seen. PELVIC ADENOPATHY: None visualized. OSSEOUS STRUCTURES: Degenerative changes in the lower lumbar spine most severe at L3-4, L4-5 and L5- S1. BOWEL: Mild sigmoid diverticulosis. No diverticulitis. No bowel obstruction. No ascites. No free int raperitoneal air. OTHER: Subcutaneous soft tissues appear within normal limits. IMPRESSION: HEPATIC STEATOSIS. SIGMOID DIVERTICULOSIS.
== END | disposition home or self-care (01) ==
LOC: RADCTMAIN 06:48
PROVIDERS: ATTEND Family Medicine
DX: K57.30 Diverticulosis of large intestine without perforation or abscess without bleeding (principal); K76.0 Fatty (change of) liver, not elsewhere classified
CPT/HCPCS: 74177; 36415; Q9967

== ENCOUNTER → 2019-07-29 | Outpatient (CLI) | payer MEDICARE, OTHER ==
[2019-07-29 11:39] LABS: Basophils % (A) 1 %; Eosinophils # (A) 0.2 k/uL (0-0.7); Eosinophils % (A) 3 %; HCT 39.3 % (34.0-46.0); HGB 13.1 gm/dL (11.4-16.0); Lymphocytes # (A) 1.8 k/uL (1.0-4.8); Lymphocytes % (A) 37 %; MCH 31.9 pg (25.0-35.0); MCHC 33.2 g/dL (31.0-37.0); Mean Platelet Volume 5.6; Monocytes # (A) 0.3 k/uL (0-1.0); Monocytes % (A) 5 %; Neutrophils # (A) 2.4 k/uL (1.3-7.7); Neutrophils % (A) 50 %; Platelet Count 278 k/uL (150-450); RDW 12.9 % (11.5-15.5); WBC 4.9 k/uL (3.8-10.6)
[2019-07-29 16:22] LABS: Albumin 4.6 g/dL (3.80-4.90); Albumin/Globulin Ratio 2.88 (1.60-3.17); Anion Gap 8.6 mmol/L (4.00-12.00); BUN/Creat Ratio 18.33 Ratio (12.00-20.00); Calcium 9.6 mg/dL (8.7-10.3); Carbon Dioxide 27.4 mmol/L (21.6-31.8); Chol/HDL Ratio 2.83; Globulin 1.6 g/dL (1.6-3.3); LDL Cholesterol,Calculated 86.4 mg/dL (0.0-131.0); Potassium 4.6 mmol/L (3.5-5.5); Total Bilirubin 0.5 mg/dL (0.2-1.2); Total Protein 6.2 g/dL (6.2-8.2); VLDL Calculation 28.6 mg/dL (5.00-40.00)
[2019-07-29 17:27] LABS: Hemoglobin A1C 6.1 % (4.0-6.0)
== END | disposition home or self-care (01) ==
LOC: LABWHC1 09:23
PROVIDERS: ATTEND Family Medicine
DX: E78.5 Hyperlipidemia, unspecified (principal); I10 Essential (primary) hypertension
CPT/HCPCS: 36415; 80053; 80061; 83036; 84439; 84443; 85025

== ENCOUNTER → 2019-12-08 | Outpatient (CLI) | payer MEDICARE, OTHER | END | disposition home or self-care (01) | CPT/HCPCS: 36415; 80053; 80061; 83036; 84439; 84443; 85025 ==

== ENCOUNTER → 2019-12-08 | Outpatient (CLI) | payer MEDICARE, OTHER | END | disposition home or self-care (01) | CPT/HCPCS: 77080 ==

== ENCOUNTER → 2020-05-20 | Outpatient (CLI) | payer MEDICARE, OTHER ==
[2020-05-20 09:52] LABS: Basophils % (A) 1 %; Eosinophils # (A) 0.2 k/uL (0-0.7); Eosinophils % (A) 3 %; HCT 40.2 % (34.0-46.0); HGB 13.2 gm/dL (11.4-16.0); Lymphocytes # (A) 1.5 k/uL (1.0-4.8); Lymphocytes % (A) 31 %; MCH 31.7 pg (25.0-35.0); MCHC 32.8 g/dL (31.0-37.0); MCV 96.6 fL (80.0-100.0); Mean Platelet Volume 6.9; Monocytes # (A) 0.3 k/uL (0-1.0); Monocytes % (A) 6 %; Neutrophils # (A) 2.7 k/uL (1.3-7.7); Neutrophils % (A) 56 %; Platelet Count 274 k/uL (150-450); RBC 4.16 m/uL (3.80-5.40); WBC 4.9 k/uL (3.8-10.6)
[2020-05-20 17:05] LABS: Albumin 4.4 g/dL (3.80-4.90); Albumin/Globulin Ratio 2.44 (1.60-3.17); Anion Gap 7.1 mmol/L (4.00-12.00); BUN/Creat Ratio 11.43 Ratio (12.00-20.00); Calcium 9.4 mg/dL (8.7-10.3); Carbon Dioxide 26.9 mmol/L (21.6-31.8); Chol/HDL Ratio 2.28; Globulin 1.8 g/dL (1.6-3.3); LDL Cholesterol,Calculated 47.4 mg/dL (0.0-131.0); Non-African American GFR(CKD) 87.2 (60.0-200.0); Potassium 4.7 mmol/L (3.5-5.5); Total Bilirubin 0.4 mg/dL (0.2-1.2); Total Protein 6.2 g/dL (6.2-8.2); VLDL Calculation 29.6 mg/dL (5.00-40.00)
[2020-05-20 17:17] LABS: T4, Free (Free Thyroxine) 0.9 ng/dL (0.80-1.80)
[2020-05-20 18:45] LABS: Hemoglobin A1C 6.5 % (4.0-6.0)
== END | disposition home or self-care (01) ==
LOC: LABWHC1 08:49
PROVIDERS: ATTEND Family Medicine
DX: Z00.00 Encounter for general adult medical examination without abnormal findings (principal); E78.5 Hyperlipidemia, unspecified; E11.9 Type 2 diabetes mellitus without complications; I10 Essential (primary) hypertension
CPT/HCPCS: 36415; 80053; 80061; 82306; 82550; 82607; 83036; 84439; 84443; 85025

== ENCOUNTER → 2020-07-14 | Outpatient (CLI) | payer MEDICARE, OTHER ==
--- NOTE | 2020-07-19 14:34 | MM ---
Reason for exam: additional evaluation requested from prior study. Last mammogram was performed 1 year and 3 months ago. History: Patient is postmenopausal and has history of breast cancer at age 67. Malignant MG pre op needle loc RT of the right breast, May 31, 2017. Malignant US biopsy breast VAD RT of the right breast, May 10, 2017. Cyst aspiration of the left breast. Cyst aspiration of the right breast. Radiation therapy. Took estrogen for 5 years 7 months. Took progesterone for 5 years 7 months. Taking antineoplastic for 3 years beginning at age 67. Physical Findings: Nurse did not find any significant physical abnormalities on exam. MG 3D Diag Mammo W/Cad ROBYN Bilateral CC and MLO view(s) were taken. Prior study comparison: April 11, 2019, bilateral MG 3d diag mammo w/cad ROBYN. April 09, 2018, bilateral MG 3d diag mammo w/cad ROBYN. There are scattered fibroglandular densities. Finding #1: There is a typically benign round mass in the anterior position of the right breast. Finding #2: There are typically benign calcifications in both breasts. Scar of right breast upper outer quadrant posterior position. No significant changes in finding since April 11, 2019 and April 09, 2018. These results were verbally communicated with the patient and result sheet given to the patient on 07/14/20. ASSESSMENT: Benign, BI-RAD 2 RECOMMENDATION: Follow-up diagnostic mammogram of both breasts in 1 year.
== END | disposition home or self-care (01) ==
LOC: RADMAMWWP 12:37
PROVIDERS: ATTEND Radiology Radiation Oncology
DX: C50.411 Malignant neoplasm of upper-outer quadrant of right female breast (principal); Z79.811 Long term (current) use of aromatase inhibitors; Z17.0 Estrogen receptor positive status [ER+]; Z98.890 Other specified postprocedural states
CPT/HCPCS: 77066; G0279; 77062

== ENCOUNTER → 2020-09-20 | Outpatient (CLI) | payer MEDICARE, OTHER ==
[2020-09-20 10:21] LABS: Basophils # (A) 0.1 k/uL (0-0.2); Basophils % (A) 1 %; Eosinophils # (A) 0.1 k/uL (0-0.7); Eosinophils % (A) 2 %; HCT 41.7 % (34.0-46.0); HGB 13.8 gm/dL (11.4-16.0); Lymphocytes # (A) 2.1 k/uL (1.0-4.8); Lymphocytes % (A) 37 %; MCH 31.6 pg (25.0-35.0); MCHC 33.1 g/dL (31.0-37.0); MCV 95.4 fL (80.0-100.0); Mean Platelet Volume 6.6; Monocytes # (A) 0.3 k/uL (0-1.0); Monocytes % (A) 6 %; Neutrophils # (A) 2.8 k/uL (1.3-7.7); Neutrophils % (A) 50 %; Platelet Count 287 k/uL (150-450); RBC 4.37 m/uL (3.80-5.40); RDW 13.2 % (11.5-15.5); WBC 5.7 k/uL (3.8-10.6)
[2020-09-20 16:54] LABS: Albumin 4.8 g/dL (3.80-4.90); Albumin/Globulin Ratio 2.67 (1.60-3.17); Anion Gap 6.6 mmol/L (4.00-12.00); BUN/Creat Ratio 17.14 Ratio (12.00-20.00); Calcium 9.7 mg/dL (8.7-10.3); Carbon Dioxide 29.4 mmol/L (21.6-31.8); Chol/HDL Ratio 2.45; Globulin 1.8 g/dL (1.6-3.3); LDL Cholesterol,Calculated 84.6 mg/dL (0.0-131.0); Non-African American GFR(CKD) 87.2 (60.0-200.0); Potassium 4.8 mmol/L (3.5-5.5); Total Bilirubin 0.4 mg/dL (0.2-1.2); Total Protein 6.6 g/dL (6.2-8.2); VLDL Calculation 21.4 mg/dL (5.00-40.00)
[2020-09-20 17:07] LABS: Hemoglobin A1C 5.8 % (4.0-6.0)
== END | disposition home or self-care (01) ==
LOC: LABWHC1 08:51
PROVIDERS: ATTEND Family Medicine
DX: E78.2 Mixed hyperlipidemia (principal); E11.9 Type 2 diabetes mellitus without complications; F41.1 Generalized anxiety disorder
CPT/HCPCS: 36415; 80053; 80061; 83036; 84443; 85025

== ENCOUNTER → 2021-03-22 | Outpatient (CLI) | payer MEDICARE, OTHER ==
[2021-03-22 15:19] LABS: Basophils # (A) 0.04 X 10*3/uL (0.00-0.10); Basophils % (A) 0.8 %; Eosinophils # (A) 0.09 X 10*3/uL (0.04-0.35); Eosinophils % (A) 1.9 %; HCT 37.6 % (37.2-46.3); HGB 12.4 g/dL (12.0-15.0); Lymphocytes % (A) 43.4 %; MCV 96.9 fL (80.0-97.0); Mean Platelet Volume 9.2 fL (9.5-12.2); Monocytes # (A) 0.52 X 10*3/uL (0.20-1.00); Monocytes % (A) 10.7 %; Neutrophils # (A) 2.08 X 10*3/uL (1.80-7.70); Platelet Count 271 X 10*3/uL (140-440); RBC 3.88 X 10*6/uL (4.10-5.20); RDW 12.6 % (11.5-14.5); WBC 4.84 X 10*3/uL (4.50-10.00)
[2021-03-22 17:03] LABS: Hemoglobin A1C 6.5 % (4.0-6.0)
[2021-03-22 17:08] LABS: African American GFR (CKD) 105.5 (60.0-200.0); Albumin 4.6 g/dL (3.80-4.90); Albumin/Globulin Ratio 2.3 (1.60-3.17); Anion Gap 6.1 mmol/L (4.00-12.00); BUN/Creat Ratio 18.33 Ratio (12.00-20.00); Carbon Dioxide 25.9 mmol/L (21.6-31.8); Chol/HDL Ratio 2.74; Non-African American GFR(CKD) 91.1 (60.0-200.0); Potassium 4.8 mmol/L (3.5-5.5); Total Bilirubin 0.5 mg/dL (0.2-1.2); Total Protein 6.6 g/dL (6.2-8.2)
[2021-03-22 17:46] LABS: T4, Free (Free Thyroxine) 0.8 ng/dL (0.80-1.80)
[2021-03-22 20:24] LABS: Urine Creatinine 105.8 mg/dL
== END | disposition home or self-care (01) ==
LOC: LABWHC1 10:01
PROVIDERS: ATTEND Family Medicine
DX: E78.5 Hyperlipidemia, unspecified (principal); I10 Essential (primary) hypertension; E11.9 Type 2 diabetes mellitus without complications
CPT/HCPCS: 36415; 80053; 80061; 82043; 82570; 82607; 83036; 84439; 84443; 85025

== ENCOUNTER → 2021-07-15 | Outpatient (CLI) | payer MEDICARE, OTHER ==
--- NOTE | 2021-07-15 14:00 | MM ---
Reason for exam: additional evaluation requested from prior study. Last mammogram was performed 1 year ago. History: Patient is postmenopausal and has history of breast cancer at age 67. Malignant MG pre op needle loc RT of the right breast, May 31, 2017. Malignant US biopsy breast VAD RT of the right breast, May 10, 2017. Cyst aspiration of the left breast. Cyst aspiration of the right breast. Radiation therapy. Took estrogen for 5 years 7 months. Took progesterone for 5 years 7 months. Taking antineoplastic for 3 years beginning at age 67. Physical Findings: Nurse did not find any significant physical abnormalities on exam. MG 3D Diag Mammo W/Cad ROBYN Bilateral CC and MLO view(s) were taken. Prior study comparison: July 14, 2020, bilateral MG 3d diag mammo w/cad ROBYN. April 11, 2019, bilateral MG 3d diag mammo w/cad ROBYN. The breast tissue is heterogeneously dense. This may lower the sensitivity of mammography. Stable benign calcifications. Stable post lumpectomy changes right breast. No significant new findings when compared with previous films. These results were verbally communicated with the patient and result sheet given to the patient on 07/15/21. ASSESSMENT: Benign, BI-RAD 2 RECOMMENDATION: Follow-up diagnostic mammogram of both breasts in 1 year.
== END | disposition home or self-care (01) ==
LOC: RADMAMWWP 12:42
PROVIDERS: ATTEND Internal Medicine Hematology & Oncology
DX: Z08 Encounter for follow-up examination after completed treatment for malignant neoplasm (principal); Z85.3 Personal history of malignant neoplasm of breast
CPT/HCPCS: 77066; G0279; 77062

== ENCOUNTER → 2021-11-03 | Outpatient (CLI) | payer MEDICARE, OTHER ==
[2021-11-03 14:57] LABS: Basophils # (A) 0.05 X 10*3/uL (0.00-0.10); Basophils % (A) 1.2 %; Eosinophils # (A) 0.18 X 10*3/uL (0.04-0.35); Eosinophils % (A) 4.3 %; HCT 38.8 % (37.2-46.3); HGB 12.9 g/dL (12.0-15.0); Immature Grans, Automated 0.2 %; Lymphocytes # (A) 1.46 X 10*3/uL (0.90-5.00); Lymphocytes % (A) 35.3 %; MCH 31.4 pg (27.0-32.0); MCHC 33.2 g/dL (32.0-37.0); MCV 94.4 fL (80.0-97.0); Mean Platelet Volume 9.4 fL (9.5-12.2); Monocytes # (A) 0.53 X 10*3/uL (0.20-1.00); Monocytes % (A) 12.8 %; NRBC Per 100 WBC 0 /100 WBCS (0.0-0.0); Neutrophils # (A) 1.91 X 10*3/uL (1.80-7.70); Neutrophils % (A) 46.2 %; Platelet Count 288 X 10*3/uL (140-440); RBC 4.11 X 10*6/uL (4.10-5.20); RDW 12.3 % (11.5-14.5); WBC 4.14 X 10*3/uL (4.50-10.00)
[2021-11-03 15:39] LABS: ALT 30 U/L (8-44); AST 27 U/L (13-35); African American GFR (CKD) 105.5 (60.0-200.0); Albumin 4.6 g/dL (3.8-4.9); Albumin/Globulin Ratio 2.09 (1.60-3.17); Alkaline Phosphatase 49 U/L (41-126); Blood Urea Nitrogen 9.9 mg/dL (9.0-27.0); Calcium 9.2 mg/dL (8.7-10.3); Carbon Dioxide 22.1 mmol/L (20.0-27.5); Chloride 99 mmol/L (96-109); Chol/HDL Ratio 2.85 Ratio; Creatine Kinase 152 U/L (26-186); Globulin 2.2 g/dL (1.6-3.3); Glucose 129 mg/dL (70-110); LDL Cholesterol,Calculated 61.9 mg/dL (0.0-131.0); Non-African American GFR(CKD) 91.1 (60.0-200.0); Potassium 5.2 mmol/L (3.5-5.5); Sodium 132 mmol/L (135-145); Total Protein 6.8 g/dL (6.2-8.2)
== END | disposition home or self-care (01) ==
LOC: LABWHC1 08:43
PROVIDERS: ATTEND Family Medicine
DX: C50.919 Malignant neoplasm of unspecified site of unspecified female breast (principal); E11.9 Type 2 diabetes mellitus without complications; E53.8 Deficiency of other specified B group vitamins
CPT/HCPCS: 36415; 80053; 80061; 82550; 82607; 83036; 84439; 84443; 85025

== ENCOUNTER → 2021-11-10 | Outpatient (CLI) | payer MEDICARE, OTHER ==
--- NOTE | 2021-11-11 07:20 | US ---
EXAMINATION TYPE: US venous doppler duplex UE RT DATE OF EXAM: 11/10/2021 COMPARISON: NONE CLINICAL HISTORY: I65.23 occlusion and stenosis carotid arteries. Right arm pain for the past 2 days SIDE PERFORMED: Right arm Right Arm: Negative for DVT No DVT seen. IMPRESSION: No evidence of DVT at this time.
== END | disposition home or self-care (01) ==
LOC: RADUSWWP 15:38
PROVIDERS: ATTEND Family Medicine
DX: R22.30 Localized swelling, mass and lump, unspecified upper limb (principal)

== ENCOUNTER → 2022-03-02 | Outpatient (CLI) | payer MEDICARE, OTHER ==
[2022-03-02 14:54] LABS: Basophils # (A) 0.06 X 10*3/uL (0.00-0.10); Eosinophils # (A) 0.17 X 10*3/uL (0.04-0.35); HCT 40.4 % (37.2-46.3); HGB 13.1 g/dL (12.0-15.0); Immature Grans, Automated 0.3 %; Lymphocytes # (A) 2.16 X 10*3/uL (0.90-5.00); Lymphocytes % (A) 37.5 %; MCH 31.3 pg (27.0-32.0); MCHC 32.4 g/dL (32.0-37.0); MCV 96.7 fL (80.0-97.0); Mean Platelet Volume 9.3 fL (9.5-12.2); Monocytes % (A) 10.4 %; NRBC Per 100 WBC 0 /100 WBCS (0.0-0.0); Neutrophils # (A) 2.75 X 10*3/uL (1.80-7.70); Neutrophils % (A) 47.8 %; Platelet Count 289 X 10*3/uL (140-440); RBC 4.18 X 10*6/uL (4.10-5.20); RDW 13.2 % (11.5-14.5); WBC 5.76 X 10*3/uL (4.50-10.00)
[2022-03-02 15:11] LABS: Chol/HDL Ratio 2.71 Ratio; Creatine Kinase 89 U/L (26-186); LDL Cholesterol,Calculated 82.1 mg/dL (0.0-131.0)
[2022-03-02 15:12] LABS: ALT 32 U/L (8-44); AST 25 U/L (13-35); African American GFR (CKD) 101.1 (60.0-200.0); Albumin 4.8 g/dL (3.8-4.9); Albumin/Globulin Ratio 2.36 (1.60-3.17); Alkaline Phosphatase 63 U/L (41-126); BUN/Creat Ratio 22.09 Ratio (12.00-20.00); Blood Urea Nitrogen 14.8 mg/dL (9.0-27.0); Calcium 10.4 mg/dL (8.7-10.3); Carbon Dioxide 26.9 mmol/L (20.0-27.5); Chloride 95 mmol/L (96-109); Glucose 131 mg/dL (70-110); Non-African American GFR(CKD) 87.2 (60.0-200.0); Potassium 5.5 mmol/L (3.5-5.5); Sodium 131 mmol/L (135-145); Total Protein 6.8 g/dL (6.2-8.2)
== END | disposition home or self-care (01) ==
LOC: LABWHC1 08:42
PROVIDERS: ATTEND Family Medicine
DX: I10 Essential (primary) hypertension (principal); R22.30 Localized swelling, mass and lump, unspecified upper limb; E11.9 Type 2 diabetes mellitus without complications
CPT/HCPCS: 36415; 80053; 80061; 82550; 83036; 84443; 85025

== ENCOUNTER → 2022-03-14 | Outpatient (CLI) | payer MEDICARE, OTHER ==
--- NOTE | 2022-03-14 13:25 | XR ---
Cervical spine HISTORY: Numbness and tingling down left arm, M 5412 5 views of cervical spine, no comparisons There is multilevel facet arthropathy. Cervical vertebral bodies show preserved height and bone operations examiner alization. There is an anterolisthesis grade 1 C4-5, C5-6 Some loss of disc height present at the int ervertebral levels. Prevertebral soft tissues are normal. There is multilevel spondylosis. Oblique im ages show foraminal encroachment at C3-4, C4-5 bilaterally. impression: Degenerative disc changes and facet arthropathy, multilevel foraminal encroachment.
== END | disposition home or self-care (01) ==
LOC: RADXRMAIN 10:13
PROVIDERS: ATTEND Family Medicine
DX: M47.892 Other spondylosis, cervical region (principal); R92.8 Other abnormal and inconclusive findings on diagnostic imaging of breast
CPT/HCPCS: 72050

== ENCOUNTER → 2022-07-17 | Outpatient (CLI) | payer MEDICARE, OTHER ==
[2022-07-17 14:58] LABS: Basophils # (A) 0.05 X 10*3/uL (0.00-0.10); Basophils % (A) 0.8 %; Eosinophils % (A) 1.7 %; HCT 37.7 % (37.2-46.3); HGB 12.8 g/dL (12.0-15.0); Immature Grans, Automated 0.5 %; Lymphocytes # (A) 2.37 X 10*3/uL (0.90-5.00); Lymphocytes % (A) 39.8 %; MCH 31.4 pg (27.0-32.0); MCV 92.6 fL (80.0-97.0); Mean Platelet Volume 9.4 fL (9.5-12.2); Monocytes # (A) 0.53 X 10*3/uL (0.20-1.00); Monocytes % (A) 8.9 %; NRBC Per 100 WBC 0 /100 WBCS (0.0-0.0); Neutrophils # (A) 2.88 X 10*3/uL (1.80-7.70); Neutrophils % (A) 48.3 %; Platelet Count 306 X 10*3/uL (140-440); RBC 4.07 X 10*6/uL (4.10-5.20); RDW 12.4 % (11.5-14.5); WBC 5.96 X 10*3/uL (4.50-10.00)
[2022-07-17 16:11] LABS: Protein, Total 6.5 g/dL (6.2-8.2)
[2022-07-17 16:14] LABS: ALT 28 U/L (8-44); AST 19 U/L (13-35); African American GFR (CKD) 99.6 (60.0-200.0); Albumin 4.5 g/dL (3.8-4.9); Albumin/Globulin Ratio 2.25 (1.60-3.17); Alkaline Phosphatase 53 U/L (41-126); BUN/Creat Ratio 24.86 Ratio (12.00-20.00); Blood Urea Nitrogen 17.4 mg/dL (9.0-27.0); Calcium 9.7 mg/dL (8.7-10.3); Carbon Dioxide 25.4 mmol/L (20.0-27.5); Chloride 99 mmol/L (96-109); Chol/HDL Ratio 2.69 Ratio; Glucose 130 mg/dL (70-110); LDL Cholesterol,Calculated 66.8 mg/dL (0.0-131.0); Potassium 5.1 mmol/L (3.5-5.5); Sodium 134 mmol/L (135-145); Total Protein 6.5 g/dL (6.2-8.2)
[2022-07-18 17:48] LABS: Albumin 4.14 g/dL (3.80-4.90); Gamma Globulin 0.64 g/dL (0.70-1.50)
[2022-07-19 09:14] LABS: Free Kappa Lt Chain Qnt, Serum 1.03 mg/dL (0.33-1.94); Free Lambda Lt Chain Qnt, Seru 0.76 mg/dL (0.57-2.63)
== END | disposition home or self-care (01) ==
LOC: LABWHC1 09:37
PROVIDERS: ATTEND Family Medicine
DX: E11.9 Type 2 diabetes mellitus without complications (principal); E83.52 Hypercalcemia; E78.5 Hyperlipidemia, unspecified
CPT/HCPCS: 36415; 80053; 80061; 82306; 83036; 83883; 83970; 84165; 84443; 85025; 86334

== ENCOUNTER → 2022-07-17 | Outpatient (CLI) | payer MEDICARE, OTHER ==
--- NOTE | 2022-07-17 11:01 | MM ---
Reason for Exam: Hx of breast cancer, conservation therapy. Last screening mammogram was performed 12 month(s) ago. Patient History: Menarche at age 12. First Full-Term at age 19. Postmenopausal. Breast cancer, age 67. Estrogen for 5 years, 7 months. Progesterone for 5 years, 7 months. Cyst Aspiration on the Right side. Cyst Aspiration on the Left side. 05/31/2017, Malignant Core Biopsy on the right side. 05/10/2017, Malignant Core Biopsy on the right side. Radiation Therapy. Tissue Density: The breast tissue is heterogeneously dense. This may lower the sensitivity of mammography. Findings: Analyzed By CAD. Similar postsurgical changes to the right breast with multiple biopsy clips. No new suspicious masses calcifications or distortions. Overall Assessment: Benign, BI-RAD 2 Management: Screening Mammogram of both breasts in 1 year. A clinical breast exam by your physician is recommended on an annual basis and results should be correlated with mammographic findings. This exam should not preclude additional follow-up of suspicious palpable abnormalities. Results were given to the patient verbally at the time of exam. Electronically signed and approved by: Jordin Piña DO
--- NOTE | 2022-07-17 12:48 | BD ---
EXAMINATION TYPE: Axial Bone Density DATE OF EXAM: 07/17/2022 COMPARISON: 12-08-19 CLINICAL HISTORY: 72 years year old Female. ICD-10 CODE: C50.411 Breast CA Height: 60IN Weight: 141LB FRAX RISK QUESTIONS: History of Fracture in Adulthood: YES Secondary Osteoporosis: 3. Menopause before 45: YES RISK FACTORS HISTORY OF: Surgery to Spine/Hip(right/left)/Wrist (right/left): YES, WRISTS (ROBYN CARPAL TUNNEL) When: A LONG TIME AGO Active: YES Postmenopausal woman: YES, AT AGE 39 Take estrogen and/or progesterone medications: YES, NONE CURRENT How lon YEARS MEDICATIONS: Osteoporosis Medications: Which medication: Prolia How Long: ABOUT 5 YEARS Additional Medications: BP MEDS, CHOLESTEROL MED, CALCIUM, VITAMIN D Additional History: BREAST CANCER, RADIATION EXAM MEASUREMENTS: Bone mineral densitometry was performed using the [employer] System. Bone mineral density as measured about the Lumbar spine is: ----- L1-L4(G/cm2): 1.213 T Score Values are as follows: ----- L1: 0.4 ----- L2: -1.6 ----- L3: 0.2 ----- L4: 1.1 ----- L1-L4: 0.3 Bone mineral density has: Increased 4.3% since study of: 12-08-19 Bone mineral density about the R hip (g/cm2): 0.834 Bone mineral density about the L hip (g/cm2): 0.868 T Score values are as follows: -----R Neck: -2.6 -----L Neck: -2.4 -----R Total: -1.4 -----L Total: -1.1 Bone mineral density has: Increased 1.6% since study of: 12-08-19 FRAX%s: The graph provided illustrates a 25.1% chance for a major osteoporotic fx and a 7.5% chance f or the hips probability for fx in 10 years time. IMPRESSION: Osteoporosis (T Score less than -2.5). There is increased fracture risk and therapy is usually indicated based on age. Re-Screen 1-2 years. NOTE: T-SCORE=SD OF THE YOUNG ADULT MEAN.
== END | disposition home or self-care (01) ==
LOC: RADMAMWWP 10:22
PROVIDERS: ATTEND Internal Medicine Hematology & Oncology
DX: C50.411 Malignant neoplasm of upper-outer quadrant of right female breast (principal); R92.8 Other abnormal and inconclusive findings on diagnostic imaging of breast; M81.0 Age-related osteoporosis without current pathological fracture; Z78.0 Asymptomatic menopausal state
CPT/HCPCS: 77080; 77066; G0279; 77062

== ENCOUNTER → 2023-02-27 | Outpatient (CLI) | payer MEDICARE, OTHER ==
[2023-02-27 15:19] LABS: Basophils # (A) 0.07 X 10*3/uL; Basophils % (A) 1.4 %; Eosinophils # (A) 0.13 X 10*3/uL; Eosinophils % (A) 2.6 %; HCT 40.2 %; HGB 13.3 d/dL; Lymphocytes # (A) 2.02 X 10*3/uL; Lymphocytes % (A) 40.7 %; MCH 32.3 pg; MCHC 33.1 d/dL; MCV 97.6 FL; Mean Platelet Volume 9.3 FL; Monocytes # (A) 0.51 X 10*3/uL; Monocytes % (A) 10.3 %; NRBC Per 100 WBC 0 X 10*3/uL; Neutrophils # (A) 2.21 X 10*3/uL; Neutrophils % (A) 44.6 %; Platelet Count 278 X 10*3/uL; RBC 4.12 X 10*6/uL; RDW 13.2 %; WBC 4.96 X 10*3/uL
[2023-02-27 15:57] LABS: ALT 37 U/L; AST 23 U/L; Albumin 4.8 d/dL; Albumin/Globulin Ratio 2.53 Ratio; Alkaline Phosphatase 58 U/L; Calcium 10.1 mg/dL; Chloride 94 mmol/L; Globulin 1.9 d/dL; Glucose 136 mg/dL; LDL Cholesterol,Calculated 68.8 mg/dL; Potassium 4.6 mmol/L; Sodium 135 mmol/L; Total Bilirubin 0.3 mg/dL; Total Protein 6.7 d/dL
[2023-02-27 18:21] LABS: Microalbumin Creatinine Ratio <25 mg/g Cr; Urine Creatinine 47.8 mg/dL
== END | disposition home or self-care (01) ==
LOC: LABWHC1 07:41
PROVIDERS: ATTEND Family Medicine
DX: E11.9 Type 2 diabetes mellitus without complications (principal); E78.2 Mixed hyperlipidemia; E04.0 Nontoxic diffuse goiter
CPT/HCPCS: 36415; 80053; 80061; 82043; 82570; 83036; 84439; 84443; 85025

== ENCOUNTER → 2023-07-18 | Outpatient (CLI) | payer MEDICARE, OTHER ==
--- NOTE | 2023-07-18 13:25 | MM ---
Reason for Exam: Hx of breast cancer, conservation therapy. Last screening mammogram was performed 12 month(s) ago. Patient History: Menarche at age 12. First Full-Term at age 19. Postmenopausal. Breast cancer, right, age 67. Estrogen for 5 years, 7 months. Progesterone for 5 years, 7 months. Cyst Aspiration on the Right side. Cyst Aspiration on the Left side. 05/31/2017, Malignant Core Biopsy on the right side. 05/10/2017, Malignant Core Biopsy on the right side. 2017, Radiation Therapy on the right side. Radiation Therapy. Tissue Density: There are scattered fibroglandular densities. Findings: Analyzed By CAD. Average density parenchymal tissue. Pattern appears stable. Postlumpectomy surgical changes in the upper outer right breast. Axillary postsurgical changes present. Benign round calcifications are present bilaterally. Chronic nodularities within the left breast. No significant interval changes are evident. No suspicious groups of microcalcifications, spiculated or lobular masses, architectural distortion or other secondary signs of malignancy are mammographically apparent. Overall Assessment: Benign, BI-RAD 2 Management: Screening Mammogram of both breasts in 1 year. A negative mammogram report should not preclude additional follow up of suspicious palpable abnormalities. Patient should continue monthly self breast exam. A clinical breast exam by your physician is recommended on an annual basis and results should be correlated with mammographic findings. Electronically signed and approved by: Martinez Bagley D.O. Radiologis
== END | disposition home or self-care (01) ==
LOC: RADMAMWWP 12:52
PROVIDERS: ATTEND Internal Medicine Hematology & Oncology
DX: C50.411 Malignant neoplasm of upper-outer quadrant of right female breast (principal); Z78.0 Asymptomatic menopausal state; Z85.3 Personal history of malignant neoplasm of breast
CPT/HCPCS: 77066; G0279; 77062

== ENCOUNTER → 2024-03-24 | Outpatient (CLI) | payer MEDICARE, OTHER ==
[2024-03-24 09:58] LABS: Basophils # (A) 0.1 k/uL (0-0.2); Basophils % (A) 1 %; Eosinophils # (A) 0.1 k/uL (0-0.7); Eosinophils % (A) 2 %; HCT 41.3 % (34.0-46.0); HGB 13.5 gm/dL (11.4-16.0); Lymphocytes # (A) 1.7 k/uL (1.0-4.8); Lymphocytes % (A) 41 %; MCH 32.6 pg (25.0-35.0); MCHC 32.8 g/dL (31.0-37.0); MCV 99.4 fL (80.0-100.0); Mean Platelet Volume 6.9; Monocytes # (A) 0.3 k/uL (0-1.0); Monocytes % (A) 6 %; Neutrophils # (A) 1.9 k/uL (1.3-7.7); Neutrophils % (A) 45 %; Platelet Count 276 k/uL (150-450); RBC 4.15 m/uL (3.80-5.40); RDW 12.8 % (11.5-15.5); WBC 4.2 k/uL (3.8-10.6)
[2024-03-24 16:02] LABS: ALT 29 U/L (8-44); AST 22 U/L (13-35); Albumin 4.5 g/dL (3.8-4.9); Alkaline Phosphatase 55 U/L (41-126); Carbon Dioxide 24.2 mmol/L (21.6-31.8); Chloride 96 mmol/L (96-109); Chol/HDL Ratio 2.48 Ratio; Globulin 1.8 g/dL (1.6-3.3); Glucose 137 mg/dL (70-110); LDL Cholesterol,Calculated 72.5 mg/dL (0.0-131.0); Potassium 5.3 mmol/L (3.5-5.5); Sodium 133 mmol/L (135-145); T4, Free (Free Thyroxine) 1.11 ng/dL (0.80-1.80); Total Bilirubin 0.3 mg/dL (0.3-1.2); Total Protein 6.3 g/dL (6.2-8.2)
== END | disposition home or self-care (01) ==
LOC: LABWHC1 09:08
PROVIDERS: ATTEND Family Medicine
DX: I10 Essential (primary) hypertension (principal); E11.65 Type 2 diabetes mellitus with hyperglycemia; E78.5 Hyperlipidemia, unspecified; E04.0 Nontoxic diffuse goiter; H05.243 Constant exophthalmos, bilateral
CPT/HCPCS: 36415; 80053; 80061; 83036; 84439; 84443; 84445; 85025; 86376

== ENCOUNTER → 2024-07-21 | Outpatient (CLI) | payer MEDICARE, OTHER ==
--- NOTE | 2024-07-21 17:36 | BD ---
EXAMINATION TYPE: Axial Bone Density DATE OF EXAM: 07/21/2024 CLINICAL HISTORY: 74 years old Female. ICD-10 CODE: M81.0 Osteoporosis Height: 60 Weight: 148 FRAX RISK QUESTIONS: History of Fracture in Adulthood: yes Secondary Osteoporosis: 3. Menopause before 45: yes RISK FACTORS HISTORY OF: MEDICATIONS: Osteoporosis Medications: Which medication: Prolia How Lon years EXAM MEASUREMENTS: Bone mineral densitometry was performed using the [employer] System. Bone mineral density as measured about the Lumbar spine is: ----- L1-L4(G/cm2): 1.259 T Score Values are as follows: ----- L1: -0.1 ----- L2: 1.1 ----- L3: 1.1 ----- L4: 0.3 ----- L1-L4: 0.7 Z Score Values are as follows: ----- L1: 1.6 ----- L2: 2.8 ----- L3: 2.8 ----- L4: 2.0 ----- L1-L4: 2.3 Bone mineral density has: Increased 3.8% since study of: 07-17-22 Bone mineral density about the R hip (g/cm2): 0.832 Bone mineral density about the L hip (g/cm2): 0.927 T Score values are as follows: -----R Neck: -2.5 -----L Neck: -2.2 -----R Total: -1.4 -----L Total: -0.6 Z Score values are as follows: -----R Neck: -0.7 -----L Neck: -0.3 -----R Total: 0.3 -----L Total: 1.1 Bone mineral density has: Increased 3.3% since study of: 07-17-22 FRAX%s: The graph provided illustrates a 25% chance for a major osteoporotic fx and a 7.8% chance for the hips probability for fx in 10 years time. IMPRESSION: Osteoporosis (T Score less than -2.5). There is increased fracture risk and therapy is usually indicated based on age. Re-Screen 1-2 years. NOTE: T-SCORE=SD OF THE YOUNG ADULT MEAN. [facility], , 07/21/2024 5:34 PM
--- NOTE | 2024-07-22 10:54 | MM ---
Reason for Exam: Screening (asymptomatic). Last screening mammogram was performed 12 month(s) ago. Patient History: Menarche at age 12. First Full-Term at age 19. Postmenopausal. Breast cancer, right, age 67. Previous chest radiation therapy at age 67. Estrogen for 5 years, 7 months. Progesterone for 5 years, 7 months. Cyst Aspiration on the Right side. Cyst Aspiration on the Left side. 05/31/2017, Malignant Core Biopsy on the right side. 05/10/2017, Malignant Core Biopsy on the right side. 2017, Radiation Therapy on the right side. Radiation Therapy. Prior Study Comparison: 07/15/2021 Bilateral Diagnostic Mammogram, [facility]. 07/17/2022 Bilateral MG 3D diag mammo w/cad ROBYN, [facility]. 07/18/2023 Bilateral MG 3D diag mammo w/cad ROBYN, [facility]. Tissue Density: There are scattered areas of fibroglandular density. Findings: Analyzed By CAD. Redemonstrated postsurgical and posttreatment changes right breast. Scattered benign round and oil cyst calcifications on both sides. There is no suspicious group of microcalcifications or new suspicious mass in either breast. Overall Assessment: Benign, BI-RAD 2 Management: Screening Mammogram of both breasts in 1 year. . Patient should continue monthly self-breast exams. A clinical breast exam by your physician is recommended on an annual basis. This exam should not preclude additional follow-up of suspicious palpable abnormalities. [facility], , 07/22/2024 10:51 AM. Electronically signed and approved by: Frida Hong M.D. Radiologist
== END | disposition home or self-care (01) ==
LOC: RADMAMWWP 11:56
PROVIDERS: ATTEND Internal Medicine Hematology & Oncology
CPT/HCPCS: 77063; 77067; 77080

== ENCOUNTER → 2024-07-21 | Outpatient (CLI) | payer MEDICARE, OTHER ==
[2024-07-21 16:46] LABS: ALT 30 U/L (8-44); AST 22 U/L (13-35); Albumin 4.4 g/dL (3.8-4.9); Albumin/Globulin Ratio 2.32 Ratio (1.60-3.17); Alkaline Phosphatase 60 U/L (41-126); Blood Urea Nitrogen 9.8 mg/dL (9.0-27.0); Calcium 9.2 mg/dL (8.7-10.3); Chloride 98 mmol/L (96-109); Chol/HDL Ratio 2.31 Ratio; Globulin 1.9 g/dL (1.6-3.3); Glucose 116 mg/dL (70-110); LDL Cholesterol,Calculated 61.7 mg/dL (0.0-131.0); Potassium 4.5 mmol/L (3.5-5.5); Sodium 133 mmol/L (135-145); Total Bilirubin 0.3 mg/dL (0.3-1.2); Total Protein 6.3 g/dL (6.2-8.2)
[2024-07-21 17:16] LABS: Basophils # (A) 0.06 X 10*3/uL (0.00-0.10); Basophils % (A) 1.1 %; Eosinophils # (A) 0.31 X 10*3/uL (0.04-0.35); Eosinophils % (A) 5.7 %; HCT 39.5 % (37.2-46.3); HGB 13.1 g/dL (12.0-15.0); Lymphocytes % (A) 32.9 %; MCH 32.3 pg (27.0-32.0); MCHC 33.2 g/dL (32.0-37.0); MCV 97.5 FL (80.0-97.0); Mean Platelet Volume 9.5 FL (9.5-12.2); NRBC Per 100 WBC 0 X 10*3/uL (0.00-0.01); Neutrophils # (A) 2.68 X 10*3/uL (1.80-7.70); Neutrophils % (A) 48.9 %; Platelet Count 280 X 10*3/uL (140-440); RBC 4.05 X 10*6/uL (4.10-5.20); RDW 12.7 % (11.5-14.5); WBC 5.47 X 10*3/uL (4.50-10.00)
[2024-07-21 21:14] LABS: Microalbumin Creatinine Ratio <20 mg/g Cr (0-30); Urine Creatinine 60.4 mg/dL (28.0-217.0)
== END | disposition home or self-care (01) ==
LOC: LABWHC1 10:40
PROVIDERS: ATTEND Family Medicine
CPT/HCPCS: 36415; 80053; 80061; 82043; 82570; 83036; 84439; 84443; 85025

== ENCOUNTER → 2024-09-29 | Outpatient (CLI) | payer MEDICARE, OTHER ==
--- NOTE | 2024-09-29 10:23 | XR ---
EXAMINATION TYPE: XR Hip Bilateral Complete DATE OF EXAM: 09/29/2024 COMPARISON: NONE CLINICAL INDICATION: Female, 74 years old with history of M16.52 UNILATERAL POST-TRAUMATIC OSTEOARTHR ITIS, L; pain left greater than right after fall TECHNIQUE: 2 views each side FINDINGS: There is opacification projecting below the right ischial tuberosity. Irregularity and scle rosis of the right ischial tuberosity. Some enthesopathy at the left greater trochanter. Hip joint sp valentín is relatively maintained on both sides. No acute fracture, subluxation, or dislocation is seen. IMPRESSION: 1. No acute osseous abnormality is seen. 2. Bony changes at the right ischial tuberosity suggests sequela of prior injury at the hamstrings or igin or chronic tendinopathy. [facility], , 09/29/2024 10:21 AM
== END | disposition home or self-care (01) ==
LOC: RADXRMAIN 09:38
PROVIDERS: ATTEND Family Medicine
DX: M16.52 Unilateral post-traumatic osteoarthritis, left hip (principal); W19.XXXA Unspecified fall, initial encounter; M77.9 Enthesopathy, unspecified
CPT/HCPCS: 73521

== ENCOUNTER → 2024-12-26 | Outpatient (CLI) | payer MEDICARE, OTHER ==
[2024-12-26 16:35] LABS: Basophils # (A) 0.06 X 10*3/uL (0.00-0.10); Basophils % (A) 0.9 %; Eosinophils # (A) 0.14 X 10*3/uL (0.04-0.35); Eosinophils % (A) 2.2 %; HCT 42.3 % (37.2-46.3); HGB 13.9 g/dL (12.0-15.0); Lymphocytes # (A) 1.91 X 10*3/uL (0.90-5.00); Lymphocytes % (A) 29.9 %; MCH 31.7 pg (27.0-32.0); MCHC 32.9 g/dL (32.0-37.0); MCV 96.4 FL (80.0-97.0); Monocytes # (A) 0.71 X 10*3/uL (0.20-1.00); Monocytes % (A) 11.1 %; NRBC Per 100 WBC 0 X 10*3/uL (0.00-0.01); Neutrophils # (A) 3.55 X 10*3/uL (1.80-7.70); Neutrophils % (A) 55.6 %; Platelet Count 290 X 10*3/uL (140-440); RBC 4.39 X 10*6/uL (4.10-5.20); RDW 14.6 % (11.5-14.5); WBC 6.39 X 10*3/uL (4.50-10.00)
[2024-12-26 16:38] LABS: ALT 33 U/L (8-44); AST 26 U/L (13-35); Albumin 4.4 g/dL (3.8-4.9); Albumin/Globulin Ratio 2.32 Ratio (1.60-3.17); Alkaline Phosphatase 62 U/L (41-126); BUN/Creat Ratio 16.33 Ratio (12.00-20.00); Blood Urea Nitrogen 9.8 mg/dL (9.0-27.0); Calcium 9.1 mg/dL (8.7-10.3); Carbon Dioxide 24.2 mmol/L (21.6-31.8); Chloride 101 mmol/L (96-109); Chol/HDL Ratio 1.87 Ratio; Globulin 1.9 g/dL (1.6-3.3); Glucose 118 mg/dL (70-110); Potassium 5.2 mmol/L (3.5-5.5); Sodium 137 mmol/L (135-145); T4, Free (Free Thyroxine) 1.24 ng/dL (0.80-1.80); Total Bilirubin 0.4 mg/dL (0.3-1.2); Total Protein 6.3 g/dL (6.2-8.2)
[2024-12-26 16:57] LABS: Microalbumin Creatinine Ratio <20 mg/g Cr (0-30); Urine Creatinine 59.5 mg/dL (28.0-217.0)
== END | disposition home or self-care (01) ==
LOC: LABWHC1 09:18
PROVIDERS: ATTEND Family Medicine
DX: I25.119 Atherosclerotic heart disease of native coronary artery with unspecified angina pectoris (principal); E11.65 Type 2 diabetes mellitus with hyperglycemia; E78.5 Hyperlipidemia, unspecified; H05.243 Constant exophthalmos, bilateral
CPT/HCPCS: 36415; 80053; 80061; 82043; 82570; 83036; 84439; 84443; 85025

== ENCOUNTER → 2025-01-19 | Outpatient (CLI) | payer MEDICARE, OTHER | END | disposition home or self-care (01) | LOC: LABWHC1 10:33 | PROVIDERS: ATTEND Orthopaedic Surgery | DX: Z01.812 Encounter for preprocedural laboratory examination (principal); M19.012 Primary osteoarthritis, left shoulder; Z22.322 Carrier or suspected carrier of Methicillin resistant Staphylococcus aureus | CPT/HCPCS: 87070 ==